=== PATIENT | male | born 1970 | race African-American/Black ===

== ENCOUNTER → 2017-05-09 08:19 | Outpatient (CLI) | payer BC, SELFPAY | PROVIDERS: Family Provider Family Medicine; PCP Family Medicine; Visit Provider Internal Medicine Endocrinology, Diabetes & Metabolism | DX: R79.89 Other specified abnormal findings of blood chemistry (principal) | CPT/HCPCS: 36415; 84402; 84403 ==

== ENCOUNTER → 2017-10-22 08:48 | Outpatient (CLI) | payer BC, SELFPAY ==
[2017-10-22 10:44] LABS: Cholesterol 91 mg/dL (200); High Density Lipoprotein 34 mg/dL; Triglycerides 214 mg/dL; Very Low Density Lipoprotein 43 mg/dL (5-40)
== END ==
PROVIDERS: Family Provider Family Medicine; PCP Family Medicine; Visit Provider Internal Medicine Endocrinology, Diabetes & Metabolism
DX: R79.89 Other specified abnormal findings of blood chemistry (principal)
CPT/HCPCS: 36415; 80061; 84403

== ENCOUNTER → 2018-03-04 13:16 | Outpatient (CLI) | payer BC, SELFPAY ==
--- NOTE | 2018-03-04 13:21 | MRI_ITS ---
STUDY: MRI BRAIN WITH AND WITHOUT CONTRAST REASON FOR EXAM: Male, 47 years old. Hypogonadotropic hypogonadism. TECHNIQUE: Standardized multiplanar fat and water weighted pulse sequences were obtained. 10 ml of Gadavist contrast material was administered intravenously for the contrast portion of the examination. COMPARISON: None. FINDINGS: Normal size of the ventricles and extra-axial spaces for the patient's age. Normal white matter tracts of the supratentorial brain. Normal bilateral basal ganglia. Normal thalami. There is no extra-axial fluid accumulation. Normal flow voids within the major intracranial circulation suggesting patency by spin echo criteria. Normal venous enhancement. There is no enhancing intra-axial or extra-axial abnormality. There is a 7 x 7 x 6 mm lesion in the right posterior aspect of the pituitary gland with decreased enhancement relative to the pituitary gland. This is consistent with pituitary microadenoma. The sella turcica is otherwise unremarkable. The infundibular stalk, optic chiasm and hypothalamus are unremarkable. Cavernous sinuses and cavernous carotid arteries are unremarkable. Normal tectal plate and pineal gland. Normal midbrain, antoinette and medulla. Normal cerebellum. Normal basal cisterns. Normal bilateral temporal bones. Normal bilateral internal auditory canals. No demonstrated orbital abnormality, within the constraints of a routine brain study. There is mild mucosal thickening in the maxillary, ethmoid, and frontal sinuses. Normal calvarium and skull base. Normal visualized soft tissue structures. MRI/Brain W/WO Contrast IMPRESSION: 1. A 7 x 7 mm hypoenhancing pituitary lesion consistent with microadenoma. 2. Mild chronic sinusitis. Electronically Signed: Melissa Hernández MD at 16:14 EST Tel , Service support ,
== END ==
PROVIDERS: Family Provider Family Medicine; PCP Family Medicine; Referring Provider Internal Medicine Endocrinology, Diabetes & Metabolism; Visit Provider Internal Medicine Endocrinology, Diabetes & Metabolism
DX: E23.0 Hypopituitarism (principal)
CPT/HCPCS: 70553; A9585

== ENCOUNTER 2018-09-24 13:00 | Outpatient (RCR) | payer BC, SELFPAY ==
[2018-05-07 15:36] VITALS: BMI 32.3
== END 2018-10-09 23:59 ==
LOC: DC 13:00
PROVIDERS: Family Provider Family Medicine; PCP Family Medicine; Visit Provider Podiatrist
DX: E11.9 Type 2 diabetes mellitus without complications (principal); E66.9 Obesity, unspecified; Z68.32 Body mass index [BMI] 32.0-32.9, adult; Z71.3 Dietary counseling and surveillance
CPT/HCPCS: 97802; G0108

== ENCOUNTER → 2018-11-02 | Outpatient (CLI) | payer BC, SELFPAY ==
[2018-05-07 15:36] VITALS: BMI 32.3
[2018-11-02 12:50] LABS: Hemoglobin A1c 7.5 % (4.2-6.3)
[2018-11-02 13:45] LABS: ALB/GLOB Ratio 1.2 RATIO (0.9-2.4); AST(SGOT) 20 U/L (15-37); Alanine Aminotransfer ALT/SGPT 31 U/L (16-61); Albumin, Serum 4.2 g/dL (3.2-5.0); Alkaline Phosphatase 67 U/L (45-117); Anion Gap 7 (5-15); BUN 24 mg/dL (7-18); BUN/Creat Ratio 16.2 RATIO (10-20); Calcium,Total 9.1 mg/dL (8.5-10.1); Chloride 105 mmol/L (98-107); Cholesterol 93 mg/dL (200); Creatinine, Serum 1.48 mg/dL (0.70-1.30); EST Glomerular Filtration Rate 54 mL/min (>60); Est Glom Filt Rate - Afr Amer 65 mL/min (>60); Globulin 3.6 g/dL (2.2-4.2); Glucose 155 mg/dL (74-106); High Density Lipoprotein 34 mg/dL; PSA,Total - Annual Screen 1.03 ng/mL (0.00-4.00); Potassium 3.8 mmol/L (3.5-5.1); Prolactin 19.3 ng/mL; Protein, Total 7.8 g/dL (6.4-8.2); Sodium Level 139 mmol/L (136-145); Triglycerides 240 mg/dL; Very Low Density Lipoprotein 48 mg/dL (5-40)
== END | disposition home or self-care (01) ==
LOC: LAB 11:29
PROVIDERS: Family Provider Family Medicine; PCP Family Medicine; Referring Provider Internal Medicine Endocrinology, Diabetes & Metabolism; Visit Provider Internal Medicine Endocrinology, Diabetes & Metabolism
DX: D35.2 Benign neoplasm of pituitary gland (principal); E23.0 Hypopituitarism; E11.65 Type 2 diabetes mellitus with hyperglycemia; Z12.5 Encounter for screening for malignant neoplasm of prostate
CPT/HCPCS: 36415; 80053; 80061; 83036; 84146; 84153; 84403; G0103

== ENCOUNTER 2018-11-04 16:02 | Outpatient (RCR) | payer BC, SELFPAY ==
[2018-05-07 15:36] VITALS: BMI 32.3
== END 2018-11-09 23:59 ==
LOC: DC 16:02
PROVIDERS: Family Provider Family Medicine; PCP Family Medicine; Visit Provider Podiatrist
DX: E11.9 Type 2 diabetes mellitus without complications (principal); E66.9 Obesity, unspecified; Z68.32 Body mass index [BMI] 32.0-32.9, adult; Z71.3 Dietary counseling and surveillance
CPT/HCPCS: 97803

== ENCOUNTER 2018-11-27 13:01 | Outpatient (RCR) | payer BC, SELFPAY ==
[2018-05-07 15:36] VITALS: BMI 32.3
== END 2018-11-27 23:59 | disposition home or self-care (01) ==
LOC: DC 13:01
PROVIDERS: Family Provider Family Medicine; PCP Family Medicine; Visit Provider Podiatrist
DX: Z71.3 Dietary counseling and surveillance (principal); E11.9 Type 2 diabetes mellitus without complications; E66.9 Obesity, unspecified; Z68.32 Body mass index [BMI] 32.0-32.9, adult
CPT/HCPCS: G0108

== ENCOUNTER → 2019-01-06 | Outpatient (CLI) | payer BC, SELFPAY ==
[2018-12-03 12:54] VITALS: BMI 31.6
--- NOTE | 2019-01-06 12:56 | ECHOD_ITS ---
Reason For Study: HTN Procedure This was a 2D Doppler, Color Flow transthoracic echocardiogram. Exam performed in department. Left Ventricle Normal LV size. Left ventricular systolic function is normal. The estimated ejection fraction is 60 %. Stage 2 diastolic dysfunction. No regional wall motion abnormalities noted. Right Ventricle Normal RV size. Normal systolic function. Atria Normal left atrium. Normal right atrium. Mitral Valve Normal mitral valve. Tricuspid Valve Normal tricuspid valve. Aortic Valve The aortic valve is not well visualized. Pulmonic Valve The pulmonic valve is not well visualized. Great Vessels Normal aortic root. The pulmonary artery is normal size. Normal inferior vena cava. Pericardium/Pleural No pericardial effusion. MMode/2D Measurements & Calculations LVIDd: 4.9 cm IVSd: 1.0 cm Ao root diam: 3.2 cm LVIDs: 3.0 cm LVPWd: 1.1 cm RVDd: 3.1 cm FS: 38.6 % LAV(MOD-bp): 51.0 ml LA A4 area: 14.7 cm2 LA dimension(2D): 3.4 cm LAV(MOD-bp) Indexed: 24.1 ml/m2 LAV(MOD-sp2): 49.6 ml LAV(MOD-sp4): 49.6 ml RA A4 area: 17.5 cm2 Time Measurements MV dec time: 0.22 sec Doppler Measurements & Calculations MV E max smooth: 80.6 cm/sec Lat Peak E' Smooth: 9.5 cm/sec Med Peak E' Smooth: 8.7 cm/sec MV A max smooth: 62.5 cm/sec E/E' lat: 8.5 E/E' med: 9.3 MV E/A: 1.3 Ao V2 max: 119.6 cm/sec LV V1 max: 103.7 cm/sec PA V2 max: 147.4 cm/sec Ao max P.7 mmHg LV V1 max P.3 mmHg PA V2 mean: 96.1 cm/sec PA V2 VTI: 22.9 cm PI dec slope: 300.5 cm/sec2 Interpretation Summary Normal LV size. Left ventricular systolic function is normal. The estimated ejection fraction is 60 %. Stage 2 diastolic dysfunction. Ordering Physician: Julio Fritz Referring Physician: Rolando Holliday Performed By: Maral Noel, PAIGE, RVT
== END | disposition home or self-care (01) ==
LOC: CVS 12:55
PROVIDERS: Family Provider Family Medicine; PCP Family Medicine; Referring Provider Internal Medicine Cardiovascular Disease; Visit Provider Internal Medicine Cardiovascular Disease
DX: I10 Essential (primary) hypertension (principal)
CPT/HCPCS: 93306

== ENCOUNTER → 2019-12-08 | Outpatient (CLI) | payer BC, SELFPAY ==
[2019-12-02 14:08] VITALS: BMI 30.9
[2019-12-08 15:42] LABS: Vitamin D,25 Hydroxy 49.4 ng/mL
[2019-12-08 15:45] LABS: Hemoglobin A1c 7.5 % (3.8-5.6)
[2019-12-08 15:49] LABS: AST(SGOT) 15 U/L (15-37); Alanine Aminotransfer ALT/SGPT 33 U/L (16-61); Albumin, Serum 4.2 g/dL (3.2-5.0); Alkaline Phosphatase 72 U/L (45-117); Anion Gap 7 (5-15); BUN 18 mg/dL (7-18); Calcium,Total 9.6 mg/dL (8.5-10.1); Chloride 106 mmol/L (98-107); Cholesterol 95 mg/dL (200); EST Glomerular Filtration Rate 68 mL/min (>60); Est Glom Filt Rate - Afr Amer 82 mL/min (>60); Glucose 105 mg/dL (74-106); High Density Lipoprotein 37 mg/dL; Potassium 3.2 mmol/L (3.5-5.1); Protein, Total 8.2 g/dL (6.4-8.2); Sodium Level 138 mmol/L (136-145); Thyroid Stim Hormone (TSH) 2.01 uIU/mL (0.358-3.74); Triglycerides 165 mg/dL; Very Low Density Lipoprotein 33 mg/dL (5-40)
[2019-12-08 15:57] LABS: Microalbumin,Random Urine 44.3 mg/L (NO RANGE EST.)
== END | disposition home or self-care (01) ==
PROVIDERS: PCP Family Medicine; Referring Provider Internal Medicine Endocrinology, Diabetes & Metabolism; Visit Provider Internal Medicine Endocrinology, Diabetes & Metabolism
DX: E11.65 Type 2 diabetes mellitus with hyperglycemia (principal); I10 Essential (primary) hypertension; D35.2 Benign neoplasm of pituitary gland; E55.9 Vitamin D deficiency, unspecified; E23.0 Hypopituitarism
CPT/HCPCS: 36415; 80053; 80061; 82043; 82306; 83036; 84443

== ENCOUNTER → 2020-04-06 08:57 | Outpatient (CLI) | payer BC, SELFPAY ==
[2019-12-02 14:08] VITALS: BMI 30.9
[2020-04-06 10:51] LABS: ALB/GLOB Ratio 1.1 RATIO (0.9-2.4); AST(SGOT) 13 U/L (15-37); Alanine Aminotransfer ALT/SGPT 22 U/L (16-61); Albumin, Serum 4.2 g/dL (3.2-5.0); Alkaline Phosphatase 71 U/L (45-117); Anion Gap 7 (5-15); BUN 23 mg/dL (7-18); BUN/Creat Ratio 16.3 RATIO (10-20); Calcium,Total 9.6 mg/dL (8.5-10.1); Chloride 104 mmol/L (98-107); Creatinine, Serum 1.41 mg/dL (0.70-1.30); EST Glomerular Filtration Rate 56 mL/min (>60); Est Glom Filt Rate - Afr Amer 68 mL/min (>60); Globulin 3.9 g/dL (2.2-4.2); Glucose 124 mg/dL (74-106); Potassium 3.7 mmol/L (3.5-5.1); Protein, Total 8.1 g/dL (6.4-8.2); Sodium Level 137 mmol/L (136-145)
[2020-04-06 10:56] LABS: Hemoglobin A1c 7.5 % (3.8-5.6)
== END ==
PROVIDERS: PCP Family Medicine; Referring Provider Internal Medicine Endocrinology, Diabetes & Metabolism; Visit Provider Internal Medicine Endocrinology, Diabetes & Metabolism
DX: E11.65 Type 2 diabetes mellitus with hyperglycemia (principal); G47.33 Obstructive sleep apnea (adult) (pediatric); I10 Essential (primary) hypertension; E78.5 Hyperlipidemia, unspecified
CPT/HCPCS: 36415; 80053; 83036

== ENCOUNTER → 2020-08-02 11:48 | Outpatient (CLI) | payer BC, SELFPAY ==
[2019-12-02 14:08] VITALS: BMI 30.9
[2020-08-02 15:49] LABS: AST(SGOT) 16 U/L (15-37); Alanine Aminotransfer ALT/SGPT 29 U/L (16-61); Alkaline Phosphatase 76 U/L (45-117); Anion Gap 9 (5-15); BUN 21 mg/dL (7-18); BUN/Creat Ratio 16.3 RATIO (10-20); Calcium,Total 9.4 mg/dL (8.5-10.1); Chloride 103 mmol/L (98-107); Cholesterol 109 mg/dL (200); Creatinine, Serum 1.29 mg/dL (0.70-1.30); EST Glomerular Filtration Rate 62 mL/min (>60); Est Glom Filt Rate - Afr Amer 76 mL/min (>60); Globulin 4.1 g/dL (2.2-4.2); Glucose 117 mg/dL (74-106); High Density Lipoprotein 46 mg/dL; PSA,Total - Annual Screen 1.38 ng/mL (0.00-4.00); Potassium 3.6 mmol/L (3.5-5.1); Protein, Total 8.1 g/dL (6.4-8.2); Sodium Level 137 mmol/L (136-145); Triglycerides 107 mg/dL; Very Low Density Lipoprotein 21 mg/dL (5-40)
[2020-08-02 16:53] LABS: Hemoglobin A1c 6.8 % (3.8-5.6)
[2020-08-05 12:48] LABS: Vitamin D,25 Hydroxy 37.7 ng/mL
== END ==
PROVIDERS: PCP Family Medicine; Referring Provider Internal Medicine Endocrinology, Diabetes & Metabolism; Visit Provider Internal Medicine Endocrinology, Diabetes & Metabolism
DX: G47.33 Obstructive sleep apnea (adult) (pediatric) (principal); I10 Essential (primary) hypertension; E23.0 Hypopituitarism; E11.9 Type 2 diabetes mellitus without complications
CPT/HCPCS: 36415; 80053; 80061; 82306; 83036; 84153; 84403; G0103

== ENCOUNTER 2021-05-02 10:42 | Outpatient (CLI) | payer BC, SELFPAY ==
[2021-05-02 11:55] LABS: Hematocrit 40.5 % (40-54); Hemoglobin 13.5 g/dL (13.0-16.5); Mean Corp Hgb Conc 33.3 g/dL (32-36); Mean Corpuscular Volume 86.9 fL (80-94); Platelet Count 272 K/mm3 (150-450); RBC Distribution Width CV 12.9 % (11.6-14.6); RBC Distribution Width SD 40.6 fl (35.1-43.9); Red Blood Count 4.66 M/mm3 (4.6-6.2)
[2021-05-02 12:48] LABS: Vitamin D,25 Hydroxy 22.3 ng/mL
[2021-05-02 12:56] LABS: ALB/GLOB Ratio 0.9 RATIO (0.9-2.4); AST(SGOT) 14 U/L (15-37); Alanine Aminotransfer ALT/SGPT 29 U/L (16-61); Albumin, Serum 4.1 g/dL (3.2-5.0); Alkaline Phosphatase 83 U/L (45-117); BUN 26 mg/dL (7-18); BUN/Creat Ratio 17.7 RATIO (10-20); Calcium,Total 9.6 mg/dL (8.5-10.1); Chloride 100 mmol/L (98-107); Cholesterol 115 mg/dL (200); Creatinine, Serum 1.47 mg/dL (0.70-1.30); EST Glomerular Filtration Rate 54 mL/min (>60); Est Glom Filt Rate - Afr Amer 65 mL/min (>60); Globulin 4.5 g/dL (2.2-4.2); Glucose 202 mg/dL (74-106); Potassium 3.6 mmol/L (3.5-5.1); Protein, Total 8.6 g/dL (6.4-8.2); Sodium Level 135 mmol/L (136-145); Triglycerides 388 mg/dL
[2021-05-02 12:57] LABS: Anion Gap 10 (5-15); High Density Lipoprotein 34 mg/dL; Thyroid Stim Hormone (TSH) 1.63 uIU/mL (0.358-3.74); Very Low Density Lipoprotein 78 mg/dL (5-40)
[2021-05-02 13:00] LABS: Hemoglobin A1c 10.3 % (3.8-5.6)
== END 2021-05-02 23:59 | disposition home or self-care (01) ==
LOC: MTLAB 10:46
PROVIDERS: PCP Family Medicine; Referring Provider Internal Medicine Endocrinology, Diabetes & Metabolism; Visit Provider Internal Medicine Endocrinology, Diabetes & Metabolism
DX: E11.65 Type 2 diabetes mellitus with hyperglycemia (principal); E23.0 Hypopituitarism; I10 Essential (primary) hypertension; E78.5 Hyperlipidemia, unspecified; E55.9 Vitamin D deficiency, unspecified
CPT/HCPCS: 36415; 80053; 80061; 82306; 83036; 84403; 84443; 85027

== ENCOUNTER → 2021-12-12 | Outpatient (CLI) | payer BC, SELFPAY ==
[2021-12-12 12:54] LABS: Vitamin D,25 Hydroxy 17.9 ng/mL
[2021-12-12 12:59] LABS: ALB/GLOB Ratio 0.9 RATIO (0.9-2.4); AST(SGOT) 13 U/L (15-37); Alanine Aminotransfer ALT/SGPT 25 U/L (16-61); Alkaline Phosphatase 81 U/L (45-117); Anion Gap 8 (5-15); BUN 22 mg/dL (7-18); BUN/Creat Ratio 14.8 RATIO (10-20); Calcium,Total 9.2 mg/dL (8.5-10.1); Chloride 106 mmol/L (98-107); Cholesterol 122 mg/dL (200); Creatinine, Serum 1.49 mg/dL (0.70-1.30); EST Glomerular Filtration Rate 53 mL/min (>60); Est Glom Filt Rate - Afr Amer 64 mL/min (>60); Globulin 4.3 g/dL (2.2-4.2); Glucose 227 mg/dL (74-106); High Density Lipoprotein 44 mg/dL; Microalbumin,Random Urine 12.4 mg/L (NO RANGE EST.); Microalbumin:Creatinine Ratio 22.7 mg/g CRE (<30 mg/g CRE); Potassium 3.7 mmol/L (3.5-5.1); Protein, Total 8.3 g/dL (6.4-8.2); Sodium Level 140 mmol/L (136-145); Triglycerides 287 mg/dL; Very Low Density Lipoprotein 57 mg/dL (5-40)
== END | disposition home or self-care (01) ==
PROVIDERS: PCP Family Medicine; Visit Provider Internal Medicine Endocrinology, Diabetes & Metabolism
DX: E11.65 Type 2 diabetes mellitus with hyperglycemia (principal); E23.0 Hypopituitarism; E55.9 Vitamin D deficiency, unspecified; I10 Essential (primary) hypertension; E66.9 Obesity, unspecified
CPT/HCPCS: 36415; 80053; 80061; 82043; 82306; 82570; 84443

== ENCOUNTER → 2023-01-10 | Outpatient (CLI) | payer BC, SELFPAY ==
[2023-01-10 12:53] LABS: Microalbumin:Creatinine Ratio 31.2 mg/g CRE (<30 mg/g CRE)
[2023-01-10 12:55] LABS: Vitamin D,25 Hydroxy 24.6 ng/mL
[2023-01-10 13:03] LABS: AST(SGOT) 16 U/L (15-37); Alanine Aminotransfer ALT/SGPT 43 U/L (16-61); Alkaline Phosphatase 82 U/L (45-117); Anion Gap 7 (5-15); BUN 20 mg/dL (7-18); BUN/Creat Ratio 15.6 RATIO (10-20); Chloride 108 mmol/L (98-107); Cholesterol 121 mg/dL (200); Creatinine, Serum 1.28 mg/dL (0.70-1.30); EST Glomerular Filtration Rate 62 mL/min (>60); Est Glom Filt Rate - Afr Amer 76 mL/min (>60); Globulin 4.2 g/dL (2.2-4.2); Glucose 128 mg/dL (74-106); High Density Lipoprotein 41 mg/dL; Potassium 3.8 mmol/L (3.5-5.1); Protein, Total 8.2 g/dL (6.4-8.2); Sodium Level 143 mmol/L (136-145); Triglycerides 289 mg/dL; Very Low Density Lipoprotein 58 mg/dL (5-40)
== END | disposition home or self-care (01) ==
PROVIDERS: PCP Family Medicine; Referring Provider Internal Medicine Endocrinology, Diabetes & Metabolism; Visit Provider Internal Medicine Endocrinology, Diabetes & Metabolism
DX: E11.65 Type 2 diabetes mellitus with hyperglycemia (principal); I10 Essential (primary) hypertension; E78.5 Hyperlipidemia, unspecified; E66.9 Obesity, unspecified; E55.9 Vitamin D deficiency, unspecified
CPT/HCPCS: 36415; 80053; 80061; 82043; 82306; 82570; 84443

== ENCOUNTER → 2023-11-30 | Outpatient (CLI) | payer BC, SELFPAY ==
[2023-11-30 15:42] LABS: Hemoglobin A1c 6.3 % (3.8-5.6)
[2023-11-30 15:47] LABS: AST(SGOT) 18 U/L (15-37); Alanine Aminotransfer ALT/SGPT 35 U/L (16-61); Alkaline Phosphatase 72 U/L (45-117); Anion Gap 8 (5-15); BUN 13 mg/dL (7-18); BUN/Creat Ratio 10.6 RATIO (10-20); Calcium,Total 9.5 mg/dL (8.5-10.1); Chloride 104 mmol/L (98-107); Cholesterol 89 mg/dL (200); Creatinine, Serum 1.23 mg/dL (0.70-1.30); EST Glomerular Filtration Rate 65 mL/min (>60); Est Glom Filt Rate - Afr Amer 79 mL/min (>60); Globulin 4.1 g/dL (2.2-4.2); Glucose 137 mg/dL (74-106); High Density Lipoprotein 38 mg/dL; Potassium 3.6 mmol/L (3.5-5.1); Protein, Total 8.1 g/dL (6.4-8.2); Sodium Level 136 mmol/L (136-145); Triglycerides 189 mg/dL; Very Low Density Lipoprotein 38 mg/dL (5-40)
[2023-11-30 15:59] LABS: Microalbumin,Random Urine 51.2 mg/L (NO RANGE EST.); Microalbumin:Creatinine Ratio 27.4 mg/g CRE (<30 mg/g CRE)
== END | disposition home or self-care (01) ==
PROVIDERS: PCP Nurse Practitioner Family; Referring Provider Internal Medicine Endocrinology, Diabetes & Metabolism; Visit Provider Internal Medicine Endocrinology, Diabetes & Metabolism
DX: E11.65 Type 2 diabetes mellitus with hyperglycemia (principal); I10 Essential (primary) hypertension; E78.5 Hyperlipidemia, unspecified; E66.9 Obesity, unspecified; E55.9 Vitamin D deficiency, unspecified
CPT/HCPCS: 36415; 80053; 80061; 82043; 82570; 83036; 84439; 84443

== ENCOUNTER → 2024-06-12 | Outpatient (CLI) | payer BC, SELFPAY ==
[2024-06-12 12:06] LABS: ALB/GLOB Ratio 1.4 RATIO (0.9-2.4); AST(SGOT) 20 U/L (<=37); Alanine Aminotransfer ALT/SGPT 34 U/L (<=46); Albumin, Serum 4.7 g/dL (3.5-5.0); Alkaline Phosphatase 81 U/L (40-129); Anion Gap 15 (5-15); BUN 24 mg/dL (4-19); BUN/Creat Ratio 18.1 RATIO (10-20); CPK Total, Creatine Kinase 83 U/L (24-195); Calcium,Total 9.9 mg/dL (7.6-11.0); Carbon Dioxide 21.1 mmol/L (21.0-32.0); Chloride 102 mmol/L (98-108); Cholesterol 105 mg/dL (<=200); Creatinine, Serum 1.33 mg/dL (0.70-1.20); EST Glomerular Filtration Rate 64 (>60); Globulin 3.3 g/dL (2.2-4.2); Glucose 147 mg/dL (70-99); High Density Lipoprotein 32 mg/dL; Low Density Lipoprotein Calc. -2 mg/dL; Potassium 3.9 mmol/L (3.3-5.1); Sodium Level 138 mmol/L (133-145); Total Bilirubin 0.75 mg/dL (0.00-1.30); Triglycerides 374 mg/dL; Very Low Density Lipoprotein 75 mg/dL (5-40); cholesterol:hdl ratio screen 3.29
[2024-06-12 15:08] LABS: Microalbumin,Random Urine < 12.0 mg/L (NO RANGE EST.); Microalbumin:Creatinine Ratio UNABLE TO CALCULATE mg/g CRE
== END | disposition home or self-care (01) ==
LOC: MTLAB 09:05
PROVIDERS: PCP Nurse Practitioner Family; Referring Provider Internal Medicine Endocrinology, Diabetes & Metabolism; Visit Provider Internal Medicine Endocrinology, Diabetes & Metabolism
DX: E11.65 Type 2 diabetes mellitus with hyperglycemia (principal); I10 Essential (primary) hypertension; E78.5 Hyperlipidemia, unspecified; E66.9 Obesity, unspecified; E55.9 Vitamin D deficiency, unspecified
CPT/HCPCS: 36415; 80053; 80061; 82043; 82306; 82550; 82570; 83036

== ENCOUNTER 2024-10-30 05:29 | Day surgery (SDC) | payer BC, SELFPAY ==
--- NOTE | 2024-10-17 08:01 | EKG12_ITS ---
Test Reason : PREOP Blood Pressure : */* mmHG Vent. Rate : 81 BPM Atrial Rate : 81 BPM P-R Int : 174 ms QRS Dur : 82 ms QT Int : 380 ms P-R-T Axes : 34 16 29 degrees QTcB Int : 441 ms Normal sinus rhythm Nonspecific T wave abnormality Abnormal ECG Confirmed by SHERRIE TENORIO ([id number]), video news editor MORALES ZAZUETA ([id number]) on 10/20/2024 6:43:40 AM Referred By: Chester Cowart Confirmed By: SHERRIE TENORIO
[2024-10-17 09:05] LABS: Hematocrit 42.1 % (40-54); Hemoglobin 13.7 g/dL (13.0-16.5); Immature Granulocytes Count 0.060 X10^3/uL (0.0-0.0); Mean Corp Hgb Conc 32.5 g/dL (32-36); Mean Corpuscular Volume 85.6 fL (80-94); Mean Platelet Vol. 9.5 fl (6.2-12.0); NRBC Flagged by Analyzer 0 % (0-5); Platelet Count 288 K/mm3 (150-450); RBC Distribution Width CV 13.4 % (11.6-14.6); RBC Distribution Width SD 41.9 fl (35.1-43.9); Red Blood Count 4.92 M/mm3 (4.6-6.2); White Blood Count 6.4 K/mm3 (4.4-11.0)
[2024-10-17 10:26] LABS: Anion Gap 14 (5-15); BUN 21 mg/dL (4-19); BUN/Creat Ratio 14.5 RATIO (10-20); Calcium,Total 10.0 mg/dL (7.6-11.0); Carbon Dioxide 22.6 mmol/L (21.0-32.0); Chloride 102 mmol/L (98-108); Glucose 145 mg/dL (70-99); Potassium 3.9 mmol/L (3.3-5.1)
--- NOTE | 2024-10-20 17:53 | PAT.ANESEVAL ---
Pre-Assessment Diagnosis/Proposed Procedure Planned Operative Procedure(s): (R) RIGHT SHOULDER ARTHROSCOPIC ROTATOR CUFF REPAIR, SUBACROMIAL DECOMPRESSION, MINI OPEN BICEPS TENODESIS AND CAPSULAR RELEASE Anesthesia History Anesthesia History - client application support engineer: Anesthesia History - client application support engineer Hx Hospitalization No 10/17/24 13:31 Any Problems With Anesthesia No 10/17/24 13:31 Cholinesterase deficiency No 10/17/24 13:31 You/Your Family Experience No 10/17/24 13:31 fever (hyperthermia) with Relationship Recent Exposure to Contagious Disease Does patient have nerve No 10/17/24 13:31 stimulator Patient instructed to have device shut off --Does patient have Pacemaker or ICD? When Was Last Pacemaker Check QUESTION #4 FULL TEXT: You/Your Family Experience fever (hyperthermia) with Anesthesia Last Oral Intake Last Oral intake: Last Oral Intake NPO since Meds taken in AM with sips of water? Meds patient instructed to take am of surgery PONV PONV - client application support engineer: PONV - client application support engineer Female No 10/17/24 13:31 HX of Motion Sickness No 10/17/24 13:31 HX of N/V After Surgery No 10/17/24 13:31 Non-Smoker Yes 10/17/24 13:31 Duration of Surgery greater Yes 10/17/24 13:31 than 60 minutes Number of Risk Factors 2 10/17/24 13:31 PONV Score Moderate Risk 10/17/24 13:31 Height & Weight Height & Weight: Anesthesia: Height & Weight Height 5 ft 9 in 02/29/24 13:26 Respiratory Assessment Respiratory Assessment - client application support engineer: Respiratory Tract Infection Hx - client application support engineer Hx Respiratory Tract Infection No 10/17/24 13:31 STOP Sleep Apnea STOP Sleep Apnea - client application support engineer: STOP Sleep Apnea - client application support engineer Hx Hypertension Yes 10/17/24 13:31 Hx Sleep Apnea Yes 10/17/24 13:31 CPAP Yes: NON COMPLIANT 10/17/24 13:31 BIPAP No 10/17/24 13:31 Do you snore loudly (louder than talking or can be heard Do you often feel tired/ fatigued/ sleepy during daytime? Has anyone observed you stop breathing during sleep? STOP Results Positive 10/17/24 13:31 QUESTION #5 FULL TEXT : Do you snore loudly (louder than talking or can be heard through closed doors)? 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 Specify any problems Hx of Preganancy in last 3 N/A 10/17/24 13:31 Months Nurse Filling Out Transfusion EHMAN 10/17/24 13:31 & Questions: Date: 10/17/24 10/17/24 13:31 Time: 13:38 10/17/24 13:31 Patient unable to answer at this time (ie. confused, unrespo /Reproduction History /Reproductive History - client application support engineer: /Reproductive Hx- client application support engineer Hx Now Gestational Age (in weeks): EDC: Hx Hx Para Hx Section SAB [facility] Medical History (Updated 10/17/24 @ 13:37 by Sarika Jordan) Wears glasses Insulin dependent diabetes mellitus Diabetes High cholesterol History of diverticulitis Non-smoker CPAP (continuous positive airway pressure) dependence Sleep apnea Hypertension History of echocardiogram Cardiology follow-up encounter Abnormal electrocardiogram Obesity Type 2 diabetes mellitus Essential (primary) hypertension Hyperlipidemia Home Medications ?Medication ?Instructions ?Recorded ?Last Taken ?Type amlodipine 10 mg tablet 10 mg PO QDAY 03/30/17 Unknown History hydrochlorothiazide 25 mg tablet 25 mg PO QDAY 03/30/17 Unknown History metformin 1,000 mg tablet 1,000 mg PO BID 03/30/17 Unknown History BP Cuff and monitor #1 ea 12/02/19 Unknown Rx dapagliflozin propanediol 10 mg 10 mg PO DAILY 01/03/22 Unknown History tablet (Farxiga) candesartan 32 mg tablet 32 mg PO DAILY 12/12/22 Unknown History insulin degludec 100 unit/mL (3 18 unit subcut DAILY 12/12/22 Unknown History mL) subcutaneous pen (Tresiba FlexTouch U-100 insulin) meloxicam 7.5 mg tablet 7.5 mg PO DAILY 12/12/22 Unknown History insulin aspart 12 unit subcut TID 02/29/24 Unknown History (niacinamide)(U-100) 100 unit/mL(3 mL) subcutaneous pen (Fiasp FlexTouch U-100 Insulin) tirzepatide 12.5 mg/0.5 mL 12.5 mg subcut TATUM 02/29/24 Unknown History subcutaneous pen injector (Mounjaro) rosuvastatin 20 mg tablet 20 mg PO DAILY 10/17/24 Unknown History Allergy/AdvReac Type Severity Reaction Status Date / Time naproxen (From Naprosyn) AdvReac Severe COULD NOT Verified 10/17/24 13:23 TASTE ANYTHING Family History Mother Diabetes Surgical History (Updated 10/17/24 @ 13:37 by Sarika Jordan) History of cardiac catheterization History of left heart catheterization (2010) Social History Smoking Status: Never smoker alcohol intake: current what type of physical activity do you participate in: none Audit: Pertinent Findings Pertinent Findings EKG Perinent findings: 10/17/2024. Normal sinus rhythm. Nonspecific T wave abnormality. Echo (EF%) pertinent findings: 01/06/2019. EF 60%. No aortic stenosis noted. Consult pertinent findings: February 29, 2024. Dr. Fritz. 1. [id number] at this time. Continue current therapy of amlodipine, candesartan, hydrochlorothiazide. 2. Hyperlipidemia-check stress echo. Recommendation Anesthesia Recommendation Anesthesia recommendation: F/U recommended (Cardiology visit from February 2024 recommended a stress echo. Was this ever done? And can we get the results.)
--- NOTE | 2024-10-23 15:29 | PAT.ANE_ITS ---
Pre-Assessment Diagnosis/Proposed Procedure Planned Operative Procedure(s): (R) RIGHT SHOULDER ARTHROSCOPIC ROTATOR CUFF REPAIR, SUBACROMIAL DECOMPRESSION, MINI OPEN BICEPS TENODESIS AND CAPSULAR RELEASE Anesthesia History Anesthesia History - geology associate: Anesthesia History - geology associate Hx Hospitalization No 10/17/24 13:31 Any Problems With Anesthesia No 10/17/24 13:31 Cholinesterase deficiency No 10/17/24 13:31 You/Your Family Experience No 10/17/24 13:31 fever (hyperthermia) with Relationship Recent Exposure to Contagious Disease Does patient have nerve No 10/17/24 13:31 stimulator Patient instructed to have device shut off --Does patient have Pacemaker or ICD? When Was Last Pacemaker Check QUESTION #4 FULL TEXT: You/Your Family Experience fever (hyperthermia) with Anesthesia Last Oral Intake Last Oral intake: Last Oral Intake NPO since Meds taken in AM with sips of water? Meds patient instructed to take am of surgery PONV PONV - geology associate: PONV - geology associate Female No 10/17/24 13:31 HX of Motion Sickness No 10/17/24 13:31 HX of N/V After Surgery No 10/17/24 13:31 Non-Smoker Yes 10/17/24 13:31 Duration of Surgery greater Yes 10/17/24 13:31 than 60 minutes Number of Risk Factors 2 10/17/24 13:31 PONV Score Moderate Risk 10/17/24 13:31 Height & Weight Height & Weight: Anesthesia: Height & Weight Height 5 ft 9 in 02/29/24 13:26 Respiratory Assessment Respiratory Assessment - geology associate: Respiratory Tract Infection Hx - geology associate Hx Respiratory Tract Infection No 10/17/24 13:31 STOP Sleep Apnea STOP Sleep Apnea - geology associate: STOP Sleep Apnea - geology associate Hx Hypertension Yes 10/17/24 13:31 Hx Sleep Apnea Yes 10/17/24 13:31 CPAP Yes: NON COMPLIANT 10/17/24 13:31 BIPAP No 10/17/24 13:31 Do you snore loudly (louder than talking or can be heard Do you often feel tired/ fatigued/ sleepy during daytime? Has anyone observed you stop breathing during sleep? STOP Results Positive 10/17/24 13:31 QUESTION #5 FULL TEXT : Do you snore loudly (louder than talking or can be heard through closed doors)? 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 Specify any problems Hx of Preganancy in last 3 N/A 10/17/24 13:31 Months Nurse Filling Out Transfusion [facility]LE[facility]MAN 10/17/24 13:31 & Questions: Date: 10/17/24 10/17/24 13:31 Time: 13:38 10/17/24 13:31 Patient unable to answer at this time (ie. confused, unrespo /Reproduction History /Reproductive History - geology associate: /Reproductive Hx- geology associate Hx Now Gestational Age (in weeks): EDC: Hx Hx Para Hx Section SAB [facility] Medical History (Updated 10/17/24 @ 13:37 by Sarika Jordan) Wears glasses Insulin dependent diabetes mellitus Diabetes High cholesterol History of diverticulitis Non-smoker CPAP (continuous positive airway pressure) dependence Sleep apnea Hypertension History of echocardiogram Cardiology follow-up encounter Abnormal electrocardiogram Obesity Type 2 diabetes mellitus Essential (primary) hypertension Hyperlipidemia Home Medications ?Medication ?Instructions ?Recorded ?Last Taken ?Type amlodipine 10 mg tablet 10 mg PO QDAY 03/30/17 Unkno wn History hydrochlorothiazide 25 mg tablet 25 mg PO QDAY 8 Unknown History metformin 1,000 mg tablet 1,000 mg PO BID 03/30/17 Unk nown History BP Cuff and monitor #1 ea 12/02/19 Unknown Rx dapagliflozin propanediol 10 mg 10 mg PO DAILY 2 Unknown History tablet (Farxiga) candesartan 32 mg tablet 32 mg PO DAILY 12/12/22 Unkn own History insulin degludec 100 unit/mL (3 18 unit subcut DAILY 1 Unknown History mL) subcutaneous pen (Tresiba FlexTouch U-100 insulin) meloxicam 7.5 mg tablet 7.5 mg PO DAILY 12/12/22 Unk nown History insulin aspart 12 unit subcut TID 02/29/24 Unknown History (niacinamide)(U-100) 100 unit/mL(3 mL) subcutaneous pen (Fiasp FlexTouch U-100 Insulin) tirzepatide 12.5 mg/0.5 mL 12.5 mg subcut TATUM 02/29/24 Unknown History subcutaneous pen injector (Mounjaro) rosuvastatin 20 mg tablet 20 mg PO DAILY 10/17/24 Unkn own History Allergy/AdvReac Type Severity Reaction Status Date / Time naproxen (From Naprosyn) AdvReac Severe COULD NOT Verified 10/17/24 13:23 TASTE ANYTHING Family History Mother Diabetes Surgical History (Updated 10/17/24 @ 13:37 by Sarika Jordan) History of cardiac catheterization History of left heart catheterization (2010) Social History Smoking Status: Never smoker alcohol intake: current what type of physical activity do you participate in: none Audit: Pertinent Findings HISTORY of Pertinent Findings History of Pertinent Findings: EKG Pertinent Findings EKG Perinent findings 10/17/2024. Normal sinus 10/20/24 17:57 rhythm. Nonspecific T wave abnormality. Echo Pertinent Findings Echo (EF%) pertinent findings 01/06/2019. EF 60%. No 10/20/24 17:57 aortic stenosis noted. Consult Pertinent Findings Consult pertinent findings February 29, 2024. 10/20/24 17:59 Lam. 1. Hypertension-well- controlled at this time. Continue current therapy of amlodipine, candesartan, hydrochlorothiazide. 2. Hyperlipidemia-check stress echo. Pertinent Findings Consult pertinent findings: October 22, 2024. Dr. Fritz. Patient has clearance for scheduled surgery. Recommendation Anesthesia Recommendation Anesthesia recommendation: OPTIMIZED for anesthesia
[2024-10-30] VITALS (11 sets, daily range): BP systolic 121–139; BP diastolic 77–98; PULSE 79–89; RESP 16–18; TEMP 36.2–36.9; O2SAT 91–99; BMI 32.8
--- OUTSIDE RECORDS SUMMARY | 2024-10-30 05:33 | XMS RPT_ITS | CCD ---
Author Organization [facility] Care Team Providers Care Assistant Auditor Name Role Phone CRYSTAL MALONE MD Unavailable Unavaila CRYSTAL Barrientos MD Unavailable Unavaila CRYSTAL Barrientos MD Unavailable Unavaila CRYSTAL Barrientos MD Unavailable Unavaila pete PROVIDER, UNKNOWN Unavailable Unavailable Dr. Rolando Holliday Primary Care Provider Unavaila pete Holliday, Dr. Marshall Referring Provider Unavailable Dino TAPPER SHANK, TAPPER SHANK-C Brigette Attending Provider Dr. Rolando Holliday MD Referring Provider Unavaila pete Fritz MD, Dr. Kim Attending Provider Oz TAPPER SHANK-C, [place] Primary Care Provider [phone] Faisal CRAWFORD, Dr. Crystal Browning Attending Provide r Dr. Crystal Malone MD Referring Provide r Julio rFitz Attending Unavailable Julio Fritz Referring Unavailable Oz, [place] [facility] Unavailable Chester Cowart Attending Unavailable Chester Cowart Referring Unavailable Oz, [place] [facility] Unavailable Chester Cowart Referring Unavailable Sherrie Macedo Attending Unavailable Oz, [place] [facility] Unavailable Julio Fritz Attending Unavailable Oz, [place] [facility] Unavailable Rolando Holliday Referring Unavailable Crystal Malone Referring Unavaila ble Oz, [place] [facility] Unavailable RagCrystal mari Attending Unavaila ble Crystal Malone Referring Unavaila ble Oz, [place] [facility] Unavailable Crystal Malone Attending Unavaila ble Allergies Allergy Classification Reported Allergen(s) Allergy Type Date of Onset Reaction(s) Facility (2 sources) Naproxen Drug Allergy 3 COULD NOT TASTE ANYTHING [facility] (1 source) Naproxen Drug Allergy 5 [facility] Repository Medications Current Medications Medication Drug Class(es) Dates Sig (Normalized) Sig (Original) amLODIPine 10 mg oral tablet (3 sources) Dihydropyridine Calcium Channel Jarrett Start: 03-30-2017 take 1 tablet by mouth once daily Amlodipine 10 mg tablet Active 10 mg PO daily March 30, 2017 1:00am atorvastatin 20 mg oral tablet (3 sources) HMG-CoA Reductase Inhibitor Start: 03-30-2017 take 1 tablet by mouth once daily Atorvastatin 20 mg tablet Active 20 mg PO daily March 30, 2017 1:00am BP Cuff and monitor (3 sources) Start: 12-02-2019 BP Cuff and monitor Active December 01, 2019 11:00pm As directed Start: 12-02-2019 BP Cuff and mo nitor Active December 02, 2019 12:00am As directed dapagliflozin 10 mg oral tablet (5 sources) Sodium-Glucose Cotransporter 2 Inhibitor Start: 01-03-2022 take 1 tablet by mouth once daily Dapagliflozin Propanediol (Farxiga) 10 mg tablet Active 10 mg PO DAILY January 03, 2022 12:00am Start: 12-21-2020 End: 01-03-2022 take 1 tablet by mouth once daily Dapagliflozin Propanediol (Farxiga) 5 mg tablet Discontinued 5 mg PO DAILY December 21, 2020 12:00am January 03, 2022 3:21pm hydroCHLOROthiazide 25 mg oral tablet (3 sources) Thiazide Diuretic Start: 03-30-2017 take 1 tablet by mouth once daily Hydrochlorothiazide 25 mg tablet Active 25 mg PO daily March 30, 2017 1:00am 3 ml insulin aspart, human 100 unt/ml pen injector (5 sources) Insulin Analog Start: 02-29-2024 Insulin Aspart (Niacinamide) (Fiasp Flextouch U-100 Insulin) 100 unit/mL (3 mL) insulin pen Active SC February 29, 2024 1:00am Start: 12-12-2022 End: 02-29-2024 Insulin Aspart U-100 (Novolo g Flexpen U-100 Insulin) 100 unit/mL (3 mL) insulin pen Discontinued 12 U SC THREE TIMES A DAY December 12, 2022 9:22am February 29, 2024 2:30pm Start: 12-12-2022 End: 12-12-2022 Insulin Aspart U-100 (Novolo g Flexpen U-100 Insulin) 100 unit/mL (3 mL) insulin pen Discontinued 5 U SC THREE TIMES A DAY December 12, 2022 12:00am December 12, 2022 9:23am Insulin Degludec (Tresiba Flextouch U-100) 100 unit/mL (3 mL) insulin pen (4 sources) Start: 12-12-2022 Insulin Deglud ec (Tresiba Flextouch U-100) 100 unit/mL (3 mL) insulin pen Active 50 U SC DAILY December 12, 2022 9:22am Start: 12-12-2022 Insulin Deglud ec (Tresiba Flextouch U-100) 100 unit/mL (3 mL) insulin pen Active 50 UNIT SC DAILY December 12, 2022 8:22am Start: 12-12-2022 End: 12-12-2022 Insulin Degludec (Tresiba Fl extouch U-100) 100 unit/mL (3 mL) insulin pen Discontinued 5 U SC DAILY December 12, 2022 12:00am December 12, 2022 9:23am Start: 12-12-2022 End: 12-12-2022 Insulin Degludec (Tresiba Fl extouch U-100) 100 unit/mL (3 mL) insulin pen Discontinued 5 UNIT SC DAILY December 11, 2022 11:00pm December 12, 2022 8:23am meloxicam 7.5 mg oral tablet (5 sources) Nonsteroidal Anti-inflammatory Drug Start: 03-30-2017 End: 12-12-2022 take 1 tablet by mouth once daily Meloxicam 7.5 mg tablet Active 7.5 mg PO DAILY December 12, 2022 12:00am metFORMIN hydrochloride 1000 mg oral tablet (3 sources) Biguanide Start: 03-30-2017 take 1 tablet by mouth twice daily Metformin 1,000 mg tablet Active 1000 mg PO TWICE A DAY March 30, 2017 1:00am Tirzepatide (Mounjaro) 12.5 mg/0.5 mL pen injector (1 source) Start: 02-29-2024 Tirzepatide (Mounjaro) 12.5 mg/0.5 mL pen injector Active mg SC EVERY WEEK February 29, 2024 1:00am Completed/Discontinued Medications Medication Drug Class(es) Dates Sig (Normalized) Sig (Original) candesartan cilexetil 32 mg oral tablet (17 sources) Angiotensin 2 Receptor Jarrett Start: 05-07-2018 End: 12-12-2022 take 1 tablet by mouth once daily Candesartan 32 mg tablet Discontinued 0 .ROUTE .COMPLEX 90 April 26, 2021 11:18am December 12, 2022 9:18am TAKE 1 TABLET BY MOUTH EVERY DAY 0.5 ml dulaglutide 3 mg/ml auto-injector (3 sources) GLP-1 Receptor Agonist Start: 05-02-2017 End: 02-29-2024 Dulaglutide (Trulicity) 1.5 mg/0.5 mL pen injector Discontinued 1.5 mg SC EVERY WEEK May 02, 2017 1:00am February 29, 2024 2:28pm glipiZIDE 5 mg oral tablet (6 sources) Sulfonylurea Start: 05-02-2017 End: 12-21-2020 take 1 tablet by mouth once daily Glipizide 5 mg tablet Discontinued 5 mg PO daily May 02, 2017 1:00am December 21, 2020 2:38pm Start: 03-30-2017 End: 05-02-2017 take 1 tablet by mouth once daily Glipizide 10 mg tablet Discontinued 10 mg PO daily March 30, 2017 1:00am May 02, 2017 4:25pm lisinopril 40 mg oral tablet (3 sources) Angiotensin Converting Enzyme Inhibitor Start: 03-30-2017 End: 05-02-2017 take 1 tablet by mouth once daily Lisinopril 40 mg tablet Discontinued 40 mg PO daily March 30, 2017 1:00am May 02, 2017 4:24pm losartan potassium 100 mg oral tablet (3 sources) Angiotensin 2 Receptor Jarrett Start: 05-02-2017 End: 05-07-2018 take 1 tablet by mouth once daily Losartan 100 mg tablet Discontinued 100 mg PO daily May 02, 2017 1:00am May 07, 2018 4:48pm SITagliptin 100 mg oral tablet (3 sources) Dipeptidyl Peptidase 4 Inhibitor Start: 03-30-2017 End: 05-02-2017 take 1 tablet by mouth once daily Sitagliptin Phosphate (Januvia) 100 mg tablet Discontinued 100 mg PO daily March 30, 2017 1:00am May 02, 2017 4:24pm Problems Problem Classification Problem Date Documented Date Episodic/Chronic Diabetes mellitus with complications (1 source) Type 2 diabetes mellitus with hyperglycemia; Translations: [Type 2 diabetes mellitus with hyperglycemia] Onset: 06-17-2024 Chronic Disorders of lipid metabolism (5 sources) Hyperlipidemia; Translations: [Hyperlipidemia, unspecified] 05-02-2017 Chronic Essential hypertension (6 sources) Essential hypertension; Translations: [Essential (primary) hypertension] Onset: 03-21-2024 11-11-2018 Chronic Immunizations and screening for infectious disease (3 sources) Patient encounter status; Translations: [Encounter for screening for COVID-19] 12-23-2021 Episodic Other screening for suspected conditions (not mental disorders or infectious disease) (6 sources) Electrocardiogram abnormal; Translations: [Abnormal electrocardiogram [ECG] [EKG]] 12-23-2021 Episodic Comment on above: ST elevation V1-V5 2 011 norm coronary arteries Results Test Name Value Interpretation Reference Range Facility MR/Juan David 10-23-2024 /PAT.[facility] Medical Records Department [address] [place] [address] PAT - Anesthesia 10/23/24 1529 MR#: [id number] Acct: [id number] Name: CHRISTEN OWEN Rep #: [id number] : 1970 54 From: Chicho Gunn MD PCP: JESSY Sanchez [place] [facility] [place] Race: AA [place] [facility] [place] Pre-Assessment Diagnosis/Proposed Procedure Planned Operative Procedure(s): (R) RIGHT SHOULDER ARTHROSCOPIC ROTATOR CUFF REPAIR, SUBACROMIAL DECOMPRESSION, MINI OPEN BICEPS TENODESIS AND CAPSULAR RELEASE Anesthesia History Anesthesia History - squeak rattle and leak repairer: Anesthesia History - squeak rattle and leak repairer Hx Hospitalization No 10/17/24 13:31 Any Problems With Anesthesia No 10/17/24 13:31 Cholinesterase deficiency No 10/17/24 13:31 You/Your Family Experience No 10/17/24 13:31 fever (hyperthermia) with Relationship Recent Exposure to Contagious Disease Does patient have nerve No 10/17/24 13:31 stimulator Patient instructed to have device shut off --Does patient have Pacemaker or ICD? When Was Last Pacemaker Check QUESTION #4 FULL TEXT: You/Your Family Experience fever (hyperthermia) with Anesthesia Last Oral Intake Last Oral intake: Last Oral Intake NPO since Meds taken in AM with sips of water? Meds patient instructed to take am of surgery PONV PONV - squeak rattle and leak repairer: PONV - squeak rattle and leak repairer Female No 10/17/24 13:31 HX of Motion Sickness No 10/17/24 13:31 HX of N/V After Surgery No 10/17/24 13:31 Non-Smoker Yes 10/17/24 13:31 Duration of Surgery greater Yes 10/17/24 13:31 than 60 minutes Number of Risk Factors 2 10/17/24 13:31 PONV Score Moderate Risk 10/17/24 13:31 Height Weight Height Weight: Anesthesia: Height Weight Height 5 ft 9 in 02/29/24 13:26 Respiratory Assessment Respiratory Assessment - squeak rattle and leak repairer: Respiratory Tract Infection Hx - squeak rattle and leak repairer Hx Respiratory Tract Infection No 10/17/24 13:31 STOP Sleep Apnea STOP Sleep Apnea - squeak rattle and leak repairer: STOP Sleep Apnea - squeak rattle and leak repairer Hx Hypertension Yes 10/17/24 13:31 Hx Sleep Apnea Yes 10/17/24 13:31 CPAP Yes: NON COMPLIANT 10/17/24 13:31 BIPAP No 10/17/24 13:31 Do you snore loudly (louder than talking or can be heard Do you often feel tired/ fatigued/ sleepy during daytime? Has anyone observed you stop breathing during sleep? STOP Results Positive 10/17/24 13:31 QUESTION #5 FULL TEXT : Do you snore loudly (louder than talking or can be heard through closed doors)? 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 Specify any problems Hx of Preganancy in last 3 N/A 10/17/24 13:31 Months Nurse Filling Out Transfusion KP 10/17/24 13:31 Questions: Date: 10/17/24 10/17/24 13:31 Time: 13:38 10/17/24 13:31 Patient unable to answer at this time (ie. confused, unrespo /Reproductio n History /Reproductiv e History - squeak rattle and leak repairer: /Reproductiv e Hx- squeak rattle and leak repairer Hx Now Gestational Age (in weeks): EDC: Hx Hx Para Hx Section SAB [facility] Medical History (Updated 10/17/24 @ 13:37 by Sarika Jordan) Wears glasses Insulin dependent diabetes mellitus Diabetes High cholesterol History of diverticulitis Non-smoker CPAP (continuous positive airway pressure) dependence Sleep apnea Hypertension History of echocardiogram Cardiology follow-up encounter Abnormal electrocardiogram Obesity Type 2 diabetes mellitus Essential (primary) hypertension Hyperlipidemia Home Medications ???Medication ???Instructions ???Recorded ???Last Taken ???Type amlodipine 10 mg tablet 10 mg PO QDAY 03/30/17 Unknown His tory hydrochlorothiazide 25 mg tablet 25 mg PO QDAY 03/30/17 Unknown His tory metformin 1,000 mg tablet 1,000 mg PO BID 03/30/17 Unknown H istory BP Cuff and monitor #1 ea 12/02/19 Unknown Rx dapagliflozin propanediol 10 mg 10 mg PO DAILY 01/03/22 Unknown Hi story tablet () candesartan 32 mg tablet 32 m (more content not included)... Normal [facility] MR/PAT.Tanya 10-20-2024 MR/PAT.[facility] Medical Records Department [address] [place] [address] PAT - Anesthesia 10/20/24 1753 MR#: [id number] Acct: [id number] Name: CHRISTEN OWEN Rep #: [id number] : 1970 54 From: Chicho Gunn MD PCP: JESSY Sanchez Status[place] [facility] [place] Race: AA [place] [facility] [place] Pre-Assessment Diagnosis/Proposed Procedure Planned Operative Procedure(s): (R) RIGHT SHOULDER ARTHROSCOPIC ROTATOR CUFF REPAIR, SUBACROMIAL DECOMPRESSION, MINI OPEN BICEPS TENODESIS AND CAPSULAR RELEASE Anesthesia History Anesthesia History - squeak rattle and leak repairer: Anesthesia History - squeak rattle and leak repairer Hx Hospitalization No 10/17/24 13:31 Any Problems With Anesthesia No 10/17/24 13:31 Cholinesterase deficiency No 10/17/24 13:31 You/Your Family Experience No 10/17/24 13:31 fever (hyperthermia) with Relationship Recent Exposure to Contagious Disease Does patient have nerve No 10/17/24 13:31 stimulator Patient instructed to have device shut off --Does patient have Pacemaker or ICD? When Was Last Pacemaker Check QUESTION #4 FULL TEXT: You/Your Family Experience fever (hyperthermia) with Anesthesia Last Oral Intake Last Oral intake: Last Oral Intake NPO since Meds taken in AM with sips of water? Meds patient instructed to take am of surgery PONV PONV - squeak rattle and leak repairer: PONV - squeak rattle and leak repairer Female No 10/17/24 13:31 HX of Motion Sickness No 10/17/24 13:31 HX of N/V After Surgery No 10/17/24 13:31 Non-Smoker Yes 10/17/24 13:31 Duration of Surgery greater Yes 10/17/24 13:31 than 60 minutes Number of Risk Factors 2 10/17/24 13:31 PONV Score Moderate Risk 10/17/24 13:31 Height Weight Height Weight: Anesthesia: Height Weight Height 5 ft 9 in 02/29/24 13:26 Respiratory Assessment Respiratory Assessment - squeak rattle and leak repairer: Respiratory Tract Infection Hx - squeak rattle and leak repairer Hx Respiratory Tract Infection No 10/17/24 13:31 STOP Sleep Apnea STOP Sleep Apnea - squeak rattle and leak repairer: STOP Sleep Apnea - squeak rattle and leak repairer Hx Hypertension Yes 10/17/24 13:31 Hx Sleep Apnea Yes 10/17/24 13:31 CPAP Yes: NON COMPLIANT 10/17/24 13:31 BIPAP No 10/17/24 13:31 Do you snore loudly (louder than talking or can be heard Do you often feel tired/ fatigued/ sleepy during daytime? Has anyone observed you stop breathing during sleep? STOP Results Positive 10/17/24 13:31 QUESTION #5 FULL TEXT : Do you snore loudly (louder than talking or can be heard through closed doors)? 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 Specify any problems Hx of Preganancy in last 3 N/A 10/17/24 13:31 Months Nurse Filling Out Transfusion [facility] 10/17/24 13:31 Questions: Date: 10/17/24 10/17/24 13:31 Time: 13:38 10/17/24 13:31 Patient unable to answer at this time (ie. confused, unrespo /Reproductio n History /Reproductiv e History - squeak rattle and leak repairer: /Reproductiv e Hx- squeak rattle and leak repairer Hx Now Gestational Age (in weeks): EDC: Hx Hx Para Hx Section SAB [facility] Medical History (Updated 10/17/24 @ 13:37 by Sarika Jordan) Wears glasses Insulin dependent diabetes mellitus Diabetes High cholesterol History of diverticulitis Non-smoker CPAP (continuous positive airway pressure) dependence Sleep apnea Hypertension History of echocardiogram Cardiology follow-up encounter Abnormal electrocardiogram Obesity Type 2 diabetes mellitus Essential (primary) hypertension Hyperlipidemia Home Medications ???Medication ???Instructions ???Recorded ???Last Taken ???Type amlodipine 10 mg tablet 10 mg PO QDAY 03/30/17 Unknown His tory hydrochlorothiazide 25 mg tablet 25 mg PO QDAY 03/30/17 Unknown His tory metformin 1,000 mg tablet 1,000 mg PO BID 03/30/17 Unknown H istory BP Cuff and monitor #1 ea 12/02/19 Unknown Rx dapagliflozin propanediol 10 mg 10 mg PO DAILY 01/03/22 Unknown Hi story tablet () candesartan 32 mg tablet 32 m (more content not included)... Normal [facility] 12 Lead EKGon 10-17-2024 12 Lead EKG [facility] Cardiovascular Services [address] [place] [address] 12 Lead EKG 10/17/2415 MR#: [id number] Acct: [id number] Name: CHRISTEN OWEN Rep #: [id number] : 1970 54 From: Sherrie Macedo MD Attending Dr: Dr. Chester Cowart DO Status: [place] [facility] [place] Ordering Dr: Chester Cowart DO Date: 10/17/24 Location[place] [facility] [place] Sex: M AA Admitted: Test Reason : PREOP Blood Pressure : */* mmHG Vent. Rate : 81 BPM Atrial Rate : 81 BPM P-R Int : 174 ms QRS Dur : 82 ms QT Int : 380 ms P-R-T Axes : 34 16 29 degrees QTcB Int : 441 ms Normal sinus rhythm Nonspecific T wave abnormality Abnormal ECG Confirmed by SHERRIE MACEDO ([id number]), assignment editor MORALES ZAZUETA ([id number]) on 10/20/2024 6:43:40 AM Referred By: Chester Cowart Confirmed By: SHERRIE MACEDO 10/20/24 0643 Date Sherrie Macedo MD CC: TAPPER SHANK-C Thelma Clinton; Dr. Chester Cowart DO Signed Normal [facility] Basic Metabolic Profile (BMP )on 10-17-2024 BUN/CRE 14.5 RATIO Normal 10-20 [facility] Comment on above: Performed By: #### L 501.9985, L100.0100, L500.2500 ####[facility] [address] [place], [address] Calcium [Mass/Vol] 10.0 mg/dL Normal 7.6-11.0 [facility] Comment on above: Performed By: #### L 501.9985, L100.0100, L500.2500 ####[facility] [address] [place], [address] Chloride [Moles/Vol] 102 mmol/L Normal 98-108 [facility] Comment on above: Performed By: #### L 501.9985, L100.0100, L500.2500 ####[facility] [address] [place], [address] CO2 [Moles/Vol] 22.6 mmol/L Normal 21.0-32.0 [facility] Comment on above: Performed By: #### L 501.9985, L100.0100, L500.2500 ####[facility] [address] [place], [address] Creatinine [Mass/Vol] 1.45 mg/dL High 0.70-1.20 [facility] Comment on above: Performed By: #### L 501.9985, L100.0100, L500.2500 ####[facility] [address] [place], [address] GAP 14 Normal 5-15 [facility] Comment on above: Performed By: #### L 501.9985, L100.0100, L500.2500 ####[facility] [address] [place], [address] GFR/1.73 sq M.predicted among non-blacks MDRD (S/P/Bld) [Vol rate/Area] 57 mL/min/{1.73_m2} Low >60 [facility] Comment on above: Result Comment: mL/m in/1.73m2 CKD-EPI Creatinine Equation (2020) Performed By: #### L 501.9985, L100.0100, L500.2500 ####[facility] [address] [place], [address] Glucose [Mass/Vol] 145 mg/dL High 70-99 [facility] Comment on above: Performed By: #### L 501.9985, L100.0100, L500.2500 ####[facility] [address] [place], [address] Potassium [Moles/Vol] 3.9 mmol/L Normal 3.3-5.1 [facility] Comment on above: Result Comment: Hemo lysis present, Results??could be affected. ?? Performed By: #### L 501.9985, L100.0100, L500.2500 ####[facility] [address] [place], [address] Sodium [Moles/Vol] 139 mmol/L Normal 133-145 [facility] Comment on above: Performed By: #### L 501.9985, L100.0100, L500.2500 ####[facility] [address] [place], [address] Urea nitrogen [Mass/Vol] 21 mg/dL High 4-19 [facility] Comment on above: Performed By: #### L 501.9985, L100.0100, L500.2500 ####[facility] [address] [place], [address] CBC W/Diff, Automatedon 08-0 8-2025 Absolute Lymph 1.75 X10 3/uL Normal 0.83-4.51 [facility] Comment on above: Performed By: #### L 501.9985, L100.0100, L500.2500 #### [facility] [address] [place], [address] Absolute Neut 3.7 X10 3/uL Normal 2.0-7.7 [facility] Comment on above: Performed By: #### L 501.9985, L100.0100, L500.2500 #### [facility] [address] [place], [address] Basophils/100 WBC (Bld) 0.6 % Normal 0-1 [facility] Comment on above: Performed By: #### L 501.9985, L100.0100, L500.2500 #### [facility] [address] [place], [address] Eosinophils/100 WBC (Bld) 6.6 % High 0-5 [facility] Comment on above: Performed By: #### L 501.9985, L100.0100, L500.2500 #### [facility] [address] [place], [address] Erythrocyte distribution width (RBC) [Ratio] 13.4 % Normal 11.6-14.6 [facility] Comment on above: Performed By: #### L 501.9985, L100.0100, L500.2500 #### [facility] [address] [place], [address] Hematocrit (Bld) [Volume fraction] 42.1 % Normal 40-54 [facility] Comment on above: Performed By: #### L 501.9985, L100.0100, L500.2500 #### [facility] [address] [place], [address] Hemoglobin (Bld) [Mass/Vol] 13.7 g/dL Normal 13.0-16.5 [facility] Comment on above: Performed By: #### L 501.9985, L100.0100, L500.2500 #### [facility] [address] [place], [address] IG% 0.900 Normal 0.0-0.9 [facility] Comment on above: Result Comment: IG% - Immature Granulocytes (promyelocytes, myelocytes and metamyelocytes) > 1% indicates that a LEFT SHIFT is Present. Performed By: #### L 501.9985, L100.0100, L500.2500 #### [facility] [address] [place], [address] Lymphocytes/100 WBC (Bld) 27.6 % Normal 19-41 [facility] Comment on above: Performed By: #### L 501.9985, L100.0100, L500.2500 #### [facility] [address] [place], [address] MCH (RBC) [Entitic mass] 27.8 pg Normal 27.0-32.0 [facility] Comment on above: Performed By: #### L 501.9985, L100.0100, L500.2500 #### [facility] [address] [place], [address] MCHC (RBC) [Mass/Vol] 32.5 g/dL Normal 32-36 [facility] Comment on above: Performed By: #### L 501.9985, L100.0100, L500.2500 #### [facility] [address] [place], [address] MCV (RBC) [Entitic vol] 85.6 fL Normal 80-[address] [facility] Comment on above: Performed By: #### L 501.9985, L100.0100, L500.2500 #### [facility] [address] [place], [address] Monocytes/100 WBC (Bld) 6.0 % Normal 0-10 [facility] Comment on above: Performed By: #### L 501.9985, L100.0100, L500.2500 #### [facility] [address] [place], [address] Neutrophils/100 WBC (Bld) 58.3 % Normal 47-70 [facility] Comment on above: Performed By: #### L 501.9985, L100.0100, L500.2500 #### [facility] [address] [place], [address] Nucleated RBC (Bld) [#/Vol] 0 10*3/uL Normal 0-5 [facility] Comment on above: Performed By: #### L 501.9985, L100.0100, L500.2500 #### [facility] [address] [place], [address] Platelet mean volume (Bld) [Entitic vol] 9.5 fL Normal 6.2-12.0 [facility] Comment on above: Performed By: #### L 501.9985, L100.0100, L500.2500 #### [facility] [address] [place], [address] Platelets (Bld) [#/Vol] 288 10*3/uL Normal 150-450 [facility] Comment on above: Performed By: #### L 501.9985, L100.0100, L500.2500 #### [facility] [address] [place], [address] RBC (Bld) [#/Vol] 4.92 10*6/uL Normal 4.6-6.2 [facility] Comment on above: Performed By: #### L 501.9985, L100.0100, L500.2500 #### [facility] [address] [place], [address] RDW SD 41.9 fl Normal 35.1-43.9 [facility] Comment on above: Performed By: #### L 501.9985, L100.0100, L500.2500 #### [facility] [address] [place], [address] WBC (Bld) [#/Vol] 6.4 10*3/uL Normal 4.4-11.0 [facility] Comment on above: Performed By: #### L 501.9985, L100.0100, L500.2500 #### [facility] [address] [place], [address] Hemoglobin A1con - HbA1c (Bld) [Mass fraction] 6.2 % High <=5.6 [facility] Comment on above: Result Comment: Norm al < 5.7 % Prediabetic 5.7 - 6.4 % Diabetic >or= 6.5 % Please note range changes. Performed By: #### L 501.9985, L100.0100, L500.2500 ####[facility] [address] [place], [place], [id number] Albumin DL <= 20 mg/L (U) [M ass/Vol]Ordered By: Crystal Malone on 06-12-2024 Urine Random Microalbumin < 12.0 mg/L NO RANGE EST. [facility] Anion gap in Serum or Plasma Ordered By: Crystal Malone on 06-12-2024 Anion gap [Moles/Vol] 15 mmol/L 5-15 [facility] BUN/creatinine ratioOrdered By: Crystal Malone on 06-12-2024 Urea nitrogen/Creatinine [Mass ratio] 18.1 mg/mg 10-20 [facility] Bilirubin, totalOrdered By: Crystal Malone on 06-12-2024 Bilirubin [Mass/Vol] 0.75 mg/dL 0.00-1.30 [facility] CPK Total, Creatine Kinaseon 06-12-2024 CPK TOTAL 83 U/L Normal 24-195 [facility] Comment on above: Performed By: #### L 501.3620, L502.0250, L500.4100, L501.9985, L500.4050, L506.1001 #### [facility] [address] [place], [place], [id number] Calculated very low density lipoprotein (VLDL) cholesterol measurementOrdered By: Crystal Malone on 06-12-2024 VLDL Cholesterol 75 mg/dL High 5-40 [facility] Carbon dioxide, total [Moles /volume] in Central venous bloodOrdered By: Crystal Malone on 06-12-2024 CO2 [Moles/Vol] 21.1 mmol/L 21.0-32.0 [facility] Chloride assayOrdered By: Ron Malone on 06-12-2024 Chloride [Moles/Vol] 102 mmol/L 98-108 [facility] Comprehensive Metabolic Prof ilon 06-12-2024 Albumin [Mass/Vol] 4.7 g/dL Normal 3.5-5.0 [facility] Comment on above: Performed By: #### L 501.3620, L502.0250, L500.4100, L501.9985, L500.4050, L506.1001 #### [facility] [address] [place], [address] Albumin/Globulin [Mass ratio] 1.4 {ratio} Normal 0.9-2.4 [facility] Comment on above: Performed By: #### L 501.3620, L502.0250, L500.4100, L501.9985, L500.4050, L506.1001 #### [facility] [address] [place], [address] ALK PHOS 81 U/L Normal 40-129 [facility] Comment on above: Performed By: #### L 501.3620, L502.0250, L500.4100, L501.9985, L500.4050, L506.1001 #### [facility] [address] [place], [address] ALT [Catalytic activity/Vol] 34 U/L Normal <=46 [facility] Comment on above: Performed By: #### L 501.3620, L502.0250, L500.4100, L501.9985, L500.4050, L506.1001 #### [facility] [address] [place], [address] AST [Catalytic activity/Vol] 20 U/L Normal <=37 [facility] Comment on above: Performed By: #### L 501.3620, L502.0250, L500.4100, L501.9985, L500.4050, L506.1001 #### [facility] [address] [place], [address] Bilirubin [Mass/Vol] 0.75 mg/dL Normal 0.00-1.30 [facility] Comment on above: Performed By: #### L 501.3620, L502.0250, L500.4100, L501.9985, L500.4050, L506.1001 #### [facility] [address] [place], [address] BUN/CRE 18.1 RATIO Normal 10-20 [facility] Comment on above: Performed By: #### L 501.3620, L502.0250, L500.4100, L501.9985, L500.4050, L506.1001 #### [facility] [address] [place], [address] Calcium [Mass/Vol] 9.9 mg/dL Normal 7.6-11.0 [facility] Comment on above: Performed By: #### L 501.3620, L502.0250, L500.4100, L501.9985, L500.4050, L506.1001 #### [facility] [address] [place], [address] Chloride [Moles/Vol] 102 mmol/L Normal 98-108 [facility] Comment on above: Performed By: #### L 501.3620, L502.0250, L500.4100, L501.9985, L500.4050, L506.1001 #### [facility] [address] [place], [address] CO2 [Moles/Vol] 21.1 mmol/L Normal 21.0-32.0 [facility] Comment on above: Performed By: #### L 501.3620, L502.0250, L500.4100, L501.9985, L500.4050, L506.1001 #### [facility] [address] [place], [address] Creatinine [Mass/Vol] 1.33 mg/dL High 0.70-1.20 [facility] Comment on above: Performed By: #### L 501.3620, L502.0250, L500.4100, L501.9985, L500.4050, L506.1001 #### [facility] [address] [place], [address] GAP 15 Normal 5-15 [facility] Comment on above: Performed By: #### L 501.3620, L502.0250, L500.4100, L501.9985, L500.4050, L506.1001 #### [facility] [address] [place], [address] GFR/1.73 sq M.predicted among non-blacks MDRD (S/P/Bld) [Vol rate/Area] 64 mL/min/{1.73_m2} Normal >60 [facility] Comment on above: Result Comment: mL/m in/1.73m2 CKD-EPI Creatinine Equation (2020) Performed By: #### L 501.3620, L502.0250, L500.4100, L501.9985, L500.4050, L506.1001 #### [facility] [address] [place], [address] Globulin (S) [Mass/Vol] 3.3 g/dL Normal 2.2-4.[address] [facility] Comment on above: Performed By: #### L 501.3620, L502.0250, L500.4100, L501.9985, L500.4050, L506.1001 #### [facility] [address] [place], [address] Glucose [Mass/Vol] 147 mg/dL High 70-99 [facility] Comment on above: Performed By: #### L 501.3620, L502.0250, L500.4100, L501.9985, L500.4050, L506.1001 #### [facility] [address] [place], [address] Potassium [Moles/Vol] 3.9 mmol/L Normal 3.3-5.1 [facility] Comment on above: Performed By: #### L 501.3620, L502.0250, L500.4100, L501.9985, L500.4050, L506.1001 #### [facility] [address] [place], [address] Sodium [Moles/Vol] 138 mmol/L Normal 133-145 [facility] Comment on above: Performed By: #### L 501.3620, L502.0250, L500.4100, L501.9985, L500.4050, L506.1001 #### [facility] [address] [place], [address] T PROT 8.0 g/dL Normal 5.9-8.4 [facility] Comment on above: Performed By: #### L 501.3620, L502.0250, L500.4100, L501.9985, L500.4050, L506.1001 #### [facility] [address] [place], [address] Urea nitrogen [Mass/Vol] 24 mg/dL High 4-19 [facility] Comment on above: Performed By: #### L 501.3620, L502.0250, L500.4100, L501.9985, L500.4050, L506.1001 #### [facility] [address] [place], [address] Creatinine Unsp time (U) [Ma ss/Vol]Ordered By: Crystal Malone on 06-12-2024 Creatinine (U) [Mass/Vol] 92.10 mg/dL 39.00-259.00 [facility] GFR/1.73 sq M.predicted heena g non-blacks MDRD (S/P/Bld) [Vol rate/Area]Ordered By: Crystal Malone on 06-12-2024 Estimated GFR (MDRD) Non-Af Amer 64 >60 [facility] Comment on above: mL/min/1.73m2 CKD-EP I Creatinine Equation (2020) Hemoglobin A1con 06-12-2024 HbA1c (Bld) [Mass fraction] 7.0 % Normal <=5.6 [facility] Comment on above: Performed By: #### L 501.3620, L502.0250, L500.4100, L501.9985, L500.4050, L506.1001 #### [facility] [address] [place], [place], [address] Hemoglobin A1c percentageOrd ered By: Crystal Malone on 06-12-2024 HbA1c (Bld) [Mass fraction] 7.0 % >5.7 [facility] LDL calc ser/plasOrdered By: Crystal Malone on 06-12-2024 LDL Cholesterol, Calculated -2 mg/dL [facility] Comment on above: Vyomxthqho=388-961 m g/dL & Higher Auzs=993 mg/dL or greater Laboratory - Chemistry and C hemistry - challengeOrdered By: Crystal Malone on 06-12-2024 AST [Catalytic activity/Vol] 20 U/L <38 [facility] Lipid Profileon 06-12-2024 CHOL:HDL 3.29 Normal [facility] Comment on above: Performed By: #### L 501.3620, L502.0250, L500.4100, L501.9985, L500.4050, L506.1001 #### [facility] [address] [place], [address] Cholesterol [Mass/Vol] 105 mg/dL Normal <=200 [facility] Comment on above: Result Comment: Chol esterol level, Desirable <200 mg/dL Borderline high cholesterol 200-239 mg/dL High cholesterol >=240 mg/dL Recommendations of the NCEP Adult Treatment Panel for the following risk-cutoff thresholds for the [place] population. Performed By: #### L 501.3620, L502.0250, L500.4100, L501.9985, L500.4050, L506.1001 #### [facility] [address] [place], [address] Cholesterol in HDL [Mass/Vol] 32 mg/dL Low [facility] Comment on above: Result Comment: Monique onal Cholesterol Education Program (NCEP) guidelines: <40 mg/dL: Low HDL-cholesterol (major risk factor for CHD) >= 60 mg/dL: High HDL-cholesterol (negative risk factor for CHD) HDL-cholesterol is affected by a number of factors, e.g. smoking, exercise, hormones, sex and age. Performed By: #### L 501.3620, L502.0250, L500.4100, L501.9985, L500.4050, L506.1001 #### [facility] [address] [facility] [place], [address] Cholesterol in LDL [Mass/Vol] -2 mg/dL Normal [facility] Comment on above: Result Comment: Bord jxuznl=113-540 mg/dL Higher Itns=595 mg/dL or greater Performed By: #### L 501.3620, L502.0250, L500.4100, L501.9985, L500.4050, L506.1001 #### [facility] [address] [place], [address] Cholesterol in VLDL [Mass/Vol] 75 mg/dL High 5-40 [facility] Comment on above: Performed By: #### L 501.3620, L502.0250, L500.4100, L501.9985, L500.4050, L506.1001 #### [facility] [address] [place], [address] Triglyceride [Mass/Vol] 374 mg/dL High [facility] Comment on above: Result Comment: The drugs N-Acetylcysteine and Metamizole may falsely depress this assay. Normal range: <150 mg/dL Borderline High: 150-199 mg/dL High: 200-499 mg/dL Very High: >500 mg/dL Performed By: #### L 501.3620, L502.0250, L500.4100, L501.9985, L500.4050, L506.1001 #### [facility] [address] [place], [address] Microalb:Creat Ratio,Random URon 06-12-2024 Creatinine [Mass/Vol] 92.10 mg/dL Normal 39.00-259.00 [facility] Comment on above: Performed By: #### L 501.3620, L502.0250, L500.4100, L501.9985, L500.4050, L506.1001 #### [facility] [address] [place], [place], [id number] (762) MALB:CREAT UNABLE TO CALCULATE Normal [facility] Comment on above: Performed By: #### L 501.3620, L502.0250, L500.4100, L501.9985, L500.4050, L506.1001 #### [facility] [address] [place], [address] MICROALBUMIN,UR < 12.0 Normal NO RANGE EST. [facility] Comment on above: Performed By: #### L 501.3620, L502.0250, L500.4100, L501.9985, L500.4050, L506.1001 #### [facility] [address] [place], [address] Microalbumin/creat ratio urO rdered By: Crystal Malone on 06-12-2024 Urine Microalbumin/Creatinine Ratio UNABLE TO CALCULATE mg/g CRE [facility] Potassium (Unsp spec) [Mass/ Vol]Ordered By: Crystal Malone on 06-12-2024 Potassium [Moles/Vol] 3.9 mmol/L 3.3-5.1 [facility] Screening total cholesterol/ high density lipoprotein (HDL) cholesterol ratioOrdered By: Crystal Malone on 06-12-2024 Cholesterol.total/Flor sterol in HDL [Mass ratio] 3.29 {ratio} [facility] Serum creatinine measurement (mass/volume)Ordered By: Crystal Malone on 06-12-2024 Creatinine [Mass/Vol] 1.33 mg/dL High 0.70-1.20 [facility] Serum globulin measurementOr dered By: Crystal Malone on 06-12-2024 Globulin (S) [Mass/Vol] 3.3 g/dL 2.2-4.2 [facility] Serum glucose measurement (m ass/volume)Ordered By: Crystal Malone on 06-12-2024 Glucose [Mass/Vol] 147 mg/dL High 70-99 [facility] Serum or plasma alanine tejeda otransferase (ALT) measurementOrdered By: Crystal Malone on 06-12-2024 ALT [Catalytic activity/Vol] 34 U/L <47 [facility] Serum or plasma albumin ernesto urement (mass/volume)Ordered By: Crystal Malone on 06-12-2024 Albumin [Mass/Vol] 4.7 g/dL 3.5-5.0 [facility] Serum or plasma albumin/glob ulin mass ratioOrdered By: Crystal Malone on 06-12-2024 Albumin/Globulin [Mass ratio] 1.4 {ratio} 0.9-2.4 [facility] Serum or plasma alkaline daniella sphatase measurementOrdered By: Crystal Malone on 06-12-2024 ALP [Catalytic activity/Vol] 81 U/L 40-129 [facility] Serum or plasma calcium ernesto urement (mass/volume)Ordered By: Crystal Malone on 06-12-2024 Calcium [Mass/Vol] 9.9 mg/dL 7.6-11.0 [facility] Serum or plasma cholesterol in HDL measurement (mass/volume)Ordered By: Crystal Malone on 06-12-2024 Cholesterol in HDL [Mass/Vol] 32 mg/dL Low >40 [facility] Comment on above: National Cholesterol Education Program (NCEP) guidelines:<40 mg/dL: Low HDL-cholesterol (major risk factor for CHD)>= 60 mg/dL: High HDL-cholesterol (negative risk factor for CHD)HDL-cholesterol is affected by a number of factors, e.g. smoking, exercise, hormones, sex and age. Serum or plasma cholesterol measurement (mass/volume)Ordered By: Crystal Malone on 06-12-2024 Cholesterol [Mass/Vol] 105 mg/dL <201 [facility] Comment on above: Cholesterol level, D esirable <200 mg/dLBorderline high cholesterol 200-239 mg/dLHigh cholesterol >=240 mg/dLRecommendations of the NCEP Adult Treatment Panel for the following risk-cutoff thresholds for the [place] population. Serum or plasma creatine kin ase activityOrdered By: Crystal Malone on 06-12-2024 CK [Catalytic activity/Vol] 83 U/L 24-195 [facility] Serum or plasma urea nitroge n measurement (mass/volume)Ordered By: Crystal Malone on 06-12-2024 Urea nitrogen [Mass/Vol] 24 mg/dL High 4-19 [facility] Sodium levelOrdered By: Bennie Malone on 06-12-2024 Sodium [Moles/Vol] 138 mmol/L 133-145 [facility] Total proteinOrdered By: Juan Malone on 06-12-2024 Protein [Mass/Vol] 8.0 g/dL 5.9-8.4 [facility] Triglycerides measurementOrd ered By: Crystal Malone on 06-12-2024 Triglyceride [Mass/Vol] 374 mg/dL High <199 [facility] Comment on above: The drugs N-Acetylcy steine and Metamizole may falsely depress this assay. Normal range: <150 mg/dLBorderline High: 150-199 mg/dLHigh: 200-499 mg/dLVery High: >500 mg/dL Vitamin D, 25-hydroxyOrdered By: Crystal Malone on 06-12-2024 Vitamin D 25-Hydroxy 15.0 ng/mL Low 30-100 [facility] Comment on above: Vitamin D StatusDefi ciency: <20 ng/mL (50nmol/L)Insufficiency: 20-30 ng/mL (50-75 nmol/L)Sufficiency: 30-100 ng/mL (75-250 nmol/L)Toxicity: >100 ng/mL (>250 nmol/L) Vitamin D,25 Hydroxyon 06-12 Vitamin D 25-OH 15.0 ng/mL Low 30-100 [facility] Comment on above: Result Comment: Sandy min D Status Deficiency: <20 ng/mL (50nmol/L) Insufficiency: 20-30 ng/mL (50-75 nmol/L) Sufficiency: 30-100 ng/mL (75-250 nmol/L) Toxicity: >100 ng/mL (>250 nmol/L) Performed By: #### L 501.3620, L502.0250, L500.4100, L501.9985, L500.4050, L506.1001 #### [facility] [address] [place], [address] Cardiology Visit Reporton Cardiology Visit Report [facility] [address] [place], [place] [address] OFFICE VISIT Date of Service: 02/29/24 MR#: [id number] Acct: [id number] Name: CHRISTEN OWEN Rep #: [id number] : 1970 Provider: Dr. Julio Fritz MD Age/Sex: 53/M Location: [facility] [place] Status: Signed HPI HPI History of Present Illness Details: CHRISTEN OWEN, is a 53 M who presents to the office today for a cardiovascular outpatient follow- up. Patient has history of hypertension, hyperlipidemia, and abnormal EKG, which is unclear if was a Brugada abnormality. With his most recent EKG it appears to have normalized. From a cardiac standpoint, the patient is doing well. He denies any palpitations, chest pain, pressure or heaviness. He denies SOB, Orthopnea, and PND. He does not have bleeding issues; no blood in urine, stool or nosebleeds. He denies any decrease in energy level, myalgias, or claudication. He does acknowledge bilateral lower extremity edema when he stands 12 hour shifts at work. He states this is relieved with elevation. He denies sudden weight gain. He denies dizziness, lightheadedness, syncopal or near syncopal episodes, and headaches. 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: No Accompanied by: Self Is patient in pain?: No Allergies naproxen (From Naprosyn) Adverse Reaction (Severe, Verified 02/29/24 13:27) COULD NOT TASTE ANYTHING Medications ???Medication ???Instructions ???Recorded ???Confirmed ???Type amlodipine 10 mg tablet 10 mg PO QDAY 03/30/17 02/29/24 History atorvastatin 20 mg tablet 20 mg PO QDAY 03/30/17 02/29/24 History hydrochlorothiazide 25 mg tablet 25 mg PO QDAY 03/30/17 02/29/24 History metformin 1,000 mg tablet 1,000 mg PO BID 03/30/17 02/29/24 History BP Cuff and monitor #1 ea 12/02/19 01/03/22 Rx dapagliflozin propanediol 10 mg 10 mg PO DAILY 01/03/22 02/29/24 History tablet (Farxiga) candesartan 32 mg tablet 32 mg PO DAILY 12/12/22 02/29/24 History insulin degludec 100 unit/mL (3 50 unit subcut DAILY 12/12/22 02/29/24 History mL) subcutaneous pen (Tresiba FlexTouch U-100 insulin) meloxicam 7.5 mg tablet 7.5 mg PO DAILY 12/12/22 02/29/24 History insulin aspart subcut 02/29/24 02/29/24 History (niacinamide)(U-100) 100 unit/mL(3 mL) subcutaneous pen (Fiasp FlexTouch U-100 Insulin) tirzepatide 12.5 mg/0.5 mL mg subcut QWEEK 02/29/24 02/29/24 History subcutaneous pen injector (Mounjaro) Have you fallen in the past year?: No [facility] Medical History Abnormal electrocardiogram Obesity Type 2 diabetes mellitus Essential (primary) hypertension Hyperlipidemia Surgical History History of left heart catheterization (2010) Family History Mother Diabetes Social History Smoking Status: Never smoker alcohol intake: current what type of physical activity do you participate in: none ROS Const Const: Negative for fatigue, weakness, headache(s), daytime sleepiness or difficulty sleeping ENT ENT: Negative for headache(s), dizziness or Nosebleed/epistaxis Cardio Chest Pain: No Palpitations: No Edema: Bilateral (BLE- trace at times ) Resp Respiratory: Negative for SOB with activity, SOB at rest, SOB orthopnea SOB lying down or Cough GI GI: Negative nausea, vomiting or heartburn Musc Musc: Positive for joint pain (shoulder) Neuro Neuro: Negative for dizziness, lightheadedness, near syncope, headache(s) or weakness Endo Endo: Negative for fatigue Supplemental Info Supplemental Information Echocardiogram 01/06/2019: Interpretation Summary Normal LV size. Left ventricular systolic function is normal. The estimated ejection fraction is 60 %. Stage 2 diastolic dysfunction. Labs: LDL Cholesterol 13 mg/dL (0-130) HDL Cholesterol 38 mg/dL (40-) L Cholesterol 89 mg/dL (200) Triglycerides 189 mg/dL (-199) Diagnostics: Electrocardiogram Echocardiogram Pulmonary: No Data to Display Past Visits: Cardiology Visit 02/29/24 Assessment and Plan Assessment and Plan (1) Essential (primary) hypertension: Status: Chronic Plan: Patient has a history of hypertension. His blood pressure is well controlled at this time. He will continue (more content not included)... Normal [facility] Comprehensive Metabolic Prof ilon 11-30-2023 Albumin [Mass/Vol] 4.0 g/dL Normal 3.2-5.0 [facility] Comment on above: Performed By: #### L 501.9985, L501.9520, L500.4050, L500.4100, L506.0400, L502.0250 ####[facility] [address] [place], [address] Albumin/Globulin [Mass ratio] 1.0 {ratio} Normal 0.9-2.4 [facility] Comment on above: Performed By: #### L 501.9985, L501.9520, L500.4050, L500.4100, L506.0400, L502.0250 ####[facility] [address] [place], [address] ALK P 72 U/L Normal 45-117 [facility] Comment on above: Performed By: #### L 501.9985, L501.9520, L500.4050, L500.4100, L506.0400, L502.0250 ####[facility] [address] [place], [address] ALT [Catalytic activity/Vol] 35 U/L Normal 16-61 [facility] Comment on above: Performed By: #### L 501.9985, L501.9520, L500.4050, L500.4100, L506.0400, L502.0250 ####[facility] [address] [place], [address] AST [Catalytic activity/Vol] 18 U/L Normal 15-37 [facility] Comment on above: Performed By: #### L 501.9985, L501.9520, L500.4050, L500.4100, L506.0400, L502.0250 ####[facility] [address] [place], [address] Bilirubin [Mass/Vol] 0.80 mg/dL Normal 0.20-1.00 [facility] Comment on above: Result Comment: For patients on eltrombopag therapy, use of Dimension Central TBIL is not recommended. Performed By: #### L 501.9985, L501.9520, L500.4050, L500.4100, L506.0400, L502.0250 ####[facility] [address] [place], [address] BUN/CRE 10.6 RATIO Normal 10-20 [facility] Comment on above: Performed By: #### L 501.9985, L501.9520, L500.4050, L500.4100, L506.0400, L502.0250 ####[facility] [address] [place], [address] CA,Total 9.5 mg/dL Normal 8.5-10.1 [facility] Comment on above: Performed By: #### L 501.9985, L501.9520, L500.4050, L500.4100, L506.0400, L502.0250 ####[facility] [address] [place], [address] Chloride [Moles/Vol] 104 mmol/L Normal 98-107 [facility] Comment on above: Performed By: #### L 501.9985, L501.9520, L500.4050, L500.4100, L506.0400, L502.0250 ####[facility] [address] [place], [address] CO2 [Moles/Vol] 24.0 mmol/L Normal 21.0-32.0 [facility] Comment on above: Performed By: #### L 501.9985, L501.9520, L500.4050, L500.4100, L506.0400, L502.0250 ####[facility] [address] [place], [place], [address] Creatinine [Mass/Vol] 1.23 mg/dL Normal 0.70-1.30 [facility] Comment on above: Result Comment: The validity of the calculated GFR GFRAA in patients over 70 years has not been determined. Clinical correlation is essential. Performed By: #### L 501.9985, L501.9520, L500.4050, L500.4100, L506.0400, L502.0250 ####[facility] [address] [place], [address] EST GFR - AA 79 mL/min Normal >60 [facility] Comment on above: Result Comment: Afri can [place] GFR Calc Performed By: #### L 501.9985, L501.9520, L500.4050, L500.4100, L506.0400, L502.0250 ####[facility] [address] [place], [address] GAP 8 Normal 5-15 [facility] Comment on above: Performed By: #### L 501.9985, L501.9520, L500.4050, L500.4100, L506.0400, L502.0250 ####[facility] [address] [place], [place], [id number] GFR/1.73 sq M.predicted among non-blacks MDRD (S/P/Bld) [Vol rate/Area] 65 mL/min/{1.73_m2} Normal >60 [facility] Comment on above: Result Comment: Non- GFR Calc Performed By: #### L 501.9985, L501.9520, L500.4050, L500.4100, L506.0400, L502.0250 ####[facility] [address] [place], [place], [id number] Globulin (S) [Mass/Vol] 4.1 g/dL Normal 2.2-4.[address] [facility] Comment on above: Performed By: #### L 501.9985, L501.9520, L500.4050, L500.4100, L506.0400, L502.0250 ####[facility] [address] [place], [address] Glucose [Mass/Vol] 137 mg/dL High 74-106 [facility] Comment on above: Result Comment: Fast ing Glucose result greater than or equal to 126 mg/dL suggests DIABETES MELLITUS per A.D.A. criteria. Performed By: #### L 501.9985, L501.9520, L500.4050, L500.4100, L506.0400, L502.0250 ####[facility] [address] [place], [address] Potassium [Moles/Vol] 3.6 mmol/L Normal 3.5-5.1 [facility] Comment on above: Performed By: #### L 501.9985, L501.9520, L500.4050, L500.4100, L506.0400, L502.0250 ####[facility] [address] [place], [address] Sodium [Moles/Vol] 136 mmol/L Normal 136-145 [facility] Comment on above: Performed By: #### L 501.9985, L501.9520, L500.4050, L500.4100, L506.0400, L502.0250 ####[facility] [address] [place], [address] T PROT 8.1 g/dL Normal 6.4-8.2 [facility] Comment on above: Performed By: #### L 501.9985, L501.9520, L500.4050, L500.4100, L506.0400, L502.0250 ####[facility] [address] [place], [address] Urea nitrogen [Mass/Vol] 13 mg/dL Normal 7-18 [facility] Comment on above: Performed By: #### L 501.9985, L501.9520, L500.4050, L500.4100, L506.0400, L502.0250 ####[facility] [address] [place], [address] Hemoglobin A1con 11-30-2023 HbA1c (Bld) [Mass fraction] 6.3 % High 3.8-5.6 [facility] Comment on above: Result Comment: Norm al < 5.7 % Prediabetic 5.7 - 6.4 % Diabetic >or= 6.5 % Please note range changes. Performed By: #### L 501.9985, L501.9520, L500.4050, L500.4100, L506.0400, L502.0250 ####[facility] [address] [place], [address] Lipid Profileon 11-30-2023 Cholesterol [Mass/Vol] 89 mg/dL Normal 200 [facility] Comment on above: Result Comment: <200 mg/dL Desirable 200-240 mg/dL Borderline >240 mg/dL High Risk Performed By: #### L 501.9985, L501.9520, L500.4050, L500.4100, L506.0400, L502.0250 ####[facility] [address] [place], [address] Cholesterol in HDL [Mass/Vol] 38 mg/dL Low [facility] Comment on above: Result Comment: The drugs N-Acetylcysteine and Metamizole may falsely depress this assay. Reference Range HDL <40 mg/dL Low HDL Cholesterol HDL >or= 60 mg/dL High HDL Cholesterol Performed By: #### L 501.9985, L501.9520, L500.4050, L500.4100, L506.0400, L502.0250 ####[facility] [address] [place], [address] Cholesterol in LDL [Mass/Vol] 13 mg/dL Normal 0-130 [facility] Comment on above: Performed By: #### L 501.9985, L501.9520, L500.4050, L500.4100, L506.0400, L502.0250 ####[facility] [address] [place], [address] Cholesterol in VLDL [Mass/Vol] 38 mg/dL Normal 5-40 [facility] Comment on above: Performed By: #### L 501.9985, L501.9520, L500.4050, L500.4100, L506.0400, L502.0250 ####[facility] [address] [place], [place], [phone] Triglyceride [Mass/Vol] 189 mg/dL Normal [facility] Comment on above: Result Comment: The drugs N-Acetylcysteine and Metamizole may falsely depress this assay. Serum Triglycerides Reference Interval Normal <150 mg/dL Borderline high 150 - 199 mg/dL High 200 - 499 mg/dL Very High > or = 500 mg/dL Performed By: #### L 501.9985, L501.9520, L500.4050, L500.4100, L506.0400, L502.0250 ####[facility] [address] [place], [address] Microalb:Creat Ratio,Random URon 11-30-2023 Creatinine [Mass/Vol] 187.00 mg/dL Normal NO RANGE EST . [facility] Comment on above: Performed By: #### L 501.9985, L501.9520, L500.4050, L500.4100, L506.0400, L502.0250 ####[facility] [address] [place], [place], [id number] MALB:CRE 27.4 mg/g CRE Normal <30 mg/g CRE [facility] Comment on above: Performed By: #### L 501.9985, L501.9520, L500.4050, L500.4100, L506.0400, L502.0250 ####[facility] [address] [place], [place], [phone] MICROALBUMIN,UR 51.2 mg/L Normal NO RANGE EST. [facility] Comment on above: Performed By: #### L 501.9985, L501.9520, L500.4050, L500.4100, L506.0400, L502.0250 ####[facility] [address] [place], [place], [phone] T4 Free Directon 11-30-2023 T4 FREE DIRECT 1.10 ng/dL Normal 0.76-1.46 [facility] Comment on above: Performed By: #### L 501.9985, L501.9520, L500.4050, L500.4100, L506.0400, L502.0250 ####[facility] [address] [place], [address] Thyroid Stim Hormone (TSH)on 11-30-2023 TSH 2.190 uIU/mL Normal 0.358-3.740 [facility] Comment on above: Performed By: #### L 501.9985, L501.9520, L500.4050, L500.4100, L506.0400, L502.0250 ####[facility] [address] [facility] [place], [address] Basophil percentageOrdered B y: Crystal Malone on 01-10-2023 Bilirubin [Mass/Vol] 0.50 mg/dL 0.20-1.00 [facility] Comment on above: For patients on eltr ombopag therapy, use of Dimension Central TBIL is not recommended. Chloride [Moles/Vol] 108 mmol/L 98-107 [facility] Cholesterol [Mass/Vol] 121 mg/dL <200 [facility] Comment on above: <200 mg/dL Desirable 200-240 mg/dL Borderline >240 mg/dL High Risk Glucose [Mass/Vol] 128 mg/dL 74-106 [facility] Comment on above: Fasting Glucose resu lt greater than or equal to 126 mg/dL suggests DIABETES MELLITUS per A.D.A. criteria. Potassium [Moles/Vol] 3.8 mmol/L 3.5-5.1 [facility] Protein [Mass/Vol] 8.2 g/dL 6.4-8.2 [facility] Sodium [Moles/Vol] 143 mmol/L 136-145 [facility] Triglyceride [Mass/Vol] 289 mg/dL <199 [facility] Comment on above: The drugs N-Acetylcy steine and Metamizole may falsely depress this assay.Serum Triglycerides Reference Interval Normal <150 mg/dL Borderline high 150 - 199 mg/dL High 200 - 499 mg/dL Very High > or = 500 mg/dL Laboratory - Chemistry and C hemistry - challengeOrdered By: Crystal Malone on 01-10-2023 ALP [Catalytic activity/Vol] 82 U/L 45-117 [facility] ALT [Catalytic activity/Vol] 43 U/L 16-61 [facility] CO2 [Moles/Vol] 28.0 mmol/L 21.0-32.0 [facility] Globulin (S) [Mass/Vol] 4.2 g/dL 2.2-4.2 [facility] Urea nitrogen/Creatinine [Mass ratio] 15.6 mg/mg 10-20 [facility] No Panel InformationOrdered By: Crystal Malone on 01-10-2023 Estimated GFR (MDRD) Amer 76 mL/min >60 [facility] Comment on above: GFR Calc Estimated GFR (MDRD) Non-Af Amer 62 mL/min >60 [facility] Comment on above: Non- GFR Calc Thyroid Stimulating Hormone (TSH) 1.90 uIU/mL 0.358-3.74 [facility] Urine Microalbumin/Creatinine Ratio 31.2 mg/g CRE <30 [facility] Vitamin D 25-Hydroxy 24.6 ng/mL [facility] Comment on above: Vitamin D 25(OH) Sta tus Range Deficiency <20 ng/mL (50nmol/L) Insufficiency 20 - 30 ng/mL (50 - 75 nmol/L) Sufficiency 30 - 100 ng/mL (75 - 250 nmol/L) Toxicity >100 ng/mL (>250 nmol/L) Serum or plasma albumin ernesto urement (mass/volume)Ordered By: Crystal Malone on 01-10-2023 Albumin [Mass/Vol] 4.0 g/dL 3.2-5.0 [facility] Serum or plasma albumin/glob ulin mass ratioOrdered By: Crystal Malone on 01-10-2023 Albumin/Globulin [Mass ratio] 1.0 {ratio} 0.9-2.4 [facility] Serum or plasma calcium ernesto urement (mass/volume)Ordered By: Crystalshae Malone on 01-10-2023 Calcium [Mass/Vol] 9.0 mg/dL 8.5-10.1 [facility] Serum or plasma cholesterol in HDL measurement (mass/volume)Ordered By: Crystalshae Malone on 01-10-2023 Cholesterol in HDL [Mass/Vol] 41 mg/dL >40 [facility] Comment on above: The drugs N-Acetylcy steine and Metamizole may falsely depress this assay. Reference Range HDL <40 mg/dL Low HDL Cholesterol HDL >or= 60 mg/dL High HDL Cholesterol Serum or plasma cholesterol in VLDL measurement (mass/volume)Ordered By: Crystalshae Malone on 01-10-2023 Cholesterol in VLDL [Mass/Vol] 58 mg/dL 5-40 [facility] Serum or plasma creatinine m easurement (mass/volume)Ordered By: Crystal Malone on 01-10-2023 Creatinine [Mass/Vol] 1.28 mg/dL 0.70-1.30 [facility] Comment on above: The validity of the calculated GFR & GFRAA in patients over 70 years has not been determined. Clinical correlation is essential. Serum or plasma low density lipoprotein (LDL) cholesterol measurement (mass/volume)Ordered By: Crystalshae Malone on 01-10-2023 Cholesterol in LDL [Mass/Vol] 22 mg/dL 0-130 [facility] Serum or plasma urea nitroge n measurement (mass/volume)Ordered By: Crystalshae Malone on 01-10-2023 Urea nitrogen [Mass/Vol] 20 mg/dL 7-18 [facility] Thin prep Papanicolaou smear with manual screeningOrdered By: Crystal Ragjustin on 01-10-2023 Thin prep Papanicolaou smear with manual screening 16 U/L 15-37 [facility] Thin prep Papanicolaou smear with manual screening 7 5-15 [facility] Thin prep Papanicolaou smear with manual screening 45.0 mg/L NO RANGE EST. [facility] Urine creatinine measurement (mass/volume)Ordered By: Crystal Malone on 01-10-2023 Creatinine (U) [Mass/Vol] 144.00 mg/dL NO RANGE EST. [facility] Basophil percentageon 2021 Bilirubin [Mass/Vol] 0.40 mg/dL 0.20-1.00 [facility] Work Phone: Comment on above: For patients on eltr ombopag therapy, use of Dimension Central TBIL is not recommended. Chloride [Moles/Vol] 106 mmol/L 98-107 [facility] Work Phone: Cholesterol [Mass/Vol] 122 mg/dL <200 [facility] Work Phone: Comment on above: <200 mg/dL Desirable 200-240 mg/dL Borderline >240 mg/dL High Risk Glucose [Mass/Vol] 227 mg/dL 74-106 [facility] Work Phone: Comment on above: Glucose result great er than or equal to 200 mg/dLsuggests DIABETES MELLITUS per A.D.A. criteria. Potassium [Moles/Vol] 3.7 mmol/L 3.5-5.1 [facility] Work Phone: Protein [Mass/Vol] 8.3 g/dL 6.4-8.2 [facility] Work Phone: Sodium [Moles/Vol] 140 mmol/L 136-145 [facility] Work Phone: Triglyceride [Mass/Vol] 287 mg/dL <199 [facility] Work Phone: Comment on above: The drugs N-Acetylcy steine and Metamizole may falsely depress this assay.Serum Triglycerides Reference Interval Normal <150 mg/dL Borderline high 150 - 199 mg/dL High 200 - 499 mg/dL Very High > or = 500 mg/dL Laboratory - Chemistry and C hemistry - challengeon 12-12-2021 ALP [Catalytic activity/Vol] 81 U/L 45-117 [facility] Work Phone: ALT [Catalytic activity/Vol] 25 U/L 16-61 [facility] Work Phone: CO2 [Moles/Vol] 26.0 mmol/L 21.0-32.0 [facility] Work Phone: Globulin (S) [Mass/Vol] 4.3 g/dL 2.2-4.2 [facility] Work Phone: Urea nitrogen/Creatinine [Mass ratio] 14.8 mg/mg 10-20 [facility] Work Phone: No Panel Informationon 12-12 Estimated GFR (MDRD) Amer 64 mL/min >60 [facility] Work Phone: Comment on above: GFR Calc Estimated GFR (MDRD) Non-Af Amer 53 mL/min >60 [facility] Work Phone: Comment on above: Non- GFR Calc Thyroid Stimulating Hormone (TSH) 1.00 uIU/mL 0.358-3.74 [facility] Work Phone: Urine Microalbumin/Creatinine Ratio 22.7 mg/g CRE <30 [facility] Work Phone: Vitamin D 25-Hydroxy 17.9 ng/mL [facility] Work Phone: Comment on above: Vitamin D 25(OH) Sta tus Range Deficiency <20 ng/mL (50nmol/L) Insufficiency 20 - 30 ng/mL (50 - 75 nmol/L) Sufficiency 30 - 100 ng/mL (75 - 250 nmol/L) Toxicity >100 ng/mL (>250 nmol/L) Serum or plasma albumin ernesto urement (mass/volume)on 12-12-2021 Albumin [Mass/Vol] 4.0 g/dL 3.2-5.0 [facility] Work Phone: Serum or plasma albumin/glob ulin mass ratioon 12-12-2021 Albumin/Globulin [Mass ratio] 0.9 {ratio} 0.9-2.4 [facility] Work Phone: Serum or plasma calcium ernesto urement (mass/volume)on 12-12-2021 Calcium [Mass/Vol] 9.2 mg/dL 8.5-10.1 [facility] Work Phone: Serum or plasma cholesterol in HDL measurement (mass/volume)on 12-12-2021 Cholesterol in HDL [Mass/Vol] 44 mg/dL >40 [facility] Work Phone: Comment on above: The drugs N-Acetylcy steine and Metamizole may falsely depress this assay. Reference Range HDL <40 mg/dL Low HDL Cholesterol HDL >or= 60 mg/dL High HDL Cholesterol Serum or plasma cholesterol in VLDL measurement (mass/volume)on 12-12-2021 Cholesterol in VLDL [Mass/Vol] 57 mg/dL 5-40 [facility] Work Phone: Serum or plasma creatinine m easurement (mass/volume)on 12-12-2021 Creatinine [Mass/Vol] 1.49 mg/dL 0.70-1.30 [facility] Work Phone: Comment on above: The validity of the calculated GFR & GFRAA in patients over 70 years has not been determined. Clinical correlation is essential. Serum or plasma low density lipoprotein (LDL) cholesterol measurement (mass/volume)on 12-12-2021 Cholesterol in LDL [Mass/Vol] 21 mg/dL 0-130 [facility] Work Phone: Serum or plasma urea nitroge n measurement (mass/volume)on 12-12-2021 Urea nitrogen [Mass/Vol] 22 mg/dL 7-18 [facility] Work Phone: Thin prep Papanicolaou smear with manual screeningon 12-12-2021 Thin prep Papanicolaou smear with manual screening 13 U/L 15-37 [facility] Work Phone: Thin prep Papanicolaou smear with manual screening 8 5-15 [facility] Work Phone: Thin prep Papanicolaou smear with manual screening 12.4 mg/L NO RANGE EST. [facility] Work Phone: Urine creatinine measurement (mass/volume)on 12-12-2021 Creatinine (U) [Mass/Vol] 54.60 mg/dL NO RANGE EST. [facility] Work Phone: CBCon 05-02-2017 Basophils Auto #/vol (Bld) 0.00 x10EE3/UL Normal 0.00 - 0.10 [facility] Comment on above: Performed By: #### 2 [id number] ####[facility],[address] [place] [address] Basophils/100 WBC Auto (Bld) 0.5 % Normal 0.0 - 2.0 [facility] Comment on above: Performed By: #### 2 15833 ####[facility],[address] [place] [address] Blood morphology N/A Normal [facility] Comment on above: Result Comment: {CD] Performed By: #### 2 50575 ####[facility],[address] [place] [address] CBC Normal [facility] Comment on above: Result Comment: CBC- COMPLETE BLOOD COUNT Performed By: #### 2 24586 ####[facility],[address] [place], [place] [id number] Eosinophils 0.80 x10EE3/UL High 0.00 - 0.50 [facility] Comment on above: Performed By: #### 2 79442 ####[facility],[address] [place], [place] [id number] Eosinophils/100 leukocytes 8.6 % High 0.0 - 7.0 [facility] Comment on above: Performed By: #### 2 78903 ####[facility],[address] [place] [address] Erythrocyte distribution width Auto Ratio (RBC) 13.8 % Normal 12.0 - 15.6 [facility] Comment on above: Performed By: #### 2 77418 ####[facility],[address] [place], [place] [id number] Erythrocytes (RBC) 4.44 x 10EE6/UL Low 4.50 - 6.00 [facility] Comment on above: Performed By: #### 2 57445 ####[facility],[address] [place] [address] Hematocrit (HCT) 37.3 % Low 40.0 - 52.0 [facility] Comment on above: Performed By: #### 2 87274 ####[facility],[address] [place] [address] Hemoglobin mass conc (Bld) 13.0 g/dL Normal 13.0 - 17.5 [facility] Comment on above: Performed By: #### 2 96319 ####[facility],[address] [place] [address] Lymphocytes 2.20 x10EE3/UL Normal 0.80 - 2.80 [facility] Comment on above: Performed By: #### 2 77721 ####[facility],[address] [place] [address] Lymphocytes/100 leukocytes 24.6 % Normal 20.0 - 45.0 [facility] Comment on above: Performed By: #### 2 72008 ####[facility],[address] [place] [address] MANUAL DIFF N/A Normal [facility] Comment on above: Performed By: #### 2 06807 ####[facility],[address] [place] [address] MCH 29 pg Normal 27 - 33 [facility] Comment on above: Performed By: #### 2 61885 ####[facility],[address] [place] [address] MCHC mass conc (RBC) 35 X10 3 Normal 32 - 36 [facility] Comment on above: Performed By: #### 2 85455 ####[facility],[address] [place] [address] MCV 84 fL Normal 81 - 98 [facility] Comment on above: Performed By: #### 2 31008 ####[facility],[address] [place] [address] Monocytes 0.70 x10EE3/UL Normal 0.20 - 1.00 [facility] Comment on above: Performed By: #### 2 09666 ####[facility],[address] [place] [address] 42551 MONOS % 7.4 % Normal 0.0 - 10.0 [facility] Comment on above: Performed By: #### 2 18669 ####[facility],[address] [place] [address] Neutrophils 5.30 x10EE3/UL Normal 1.50 - 7.10 [facility] Comment on above: Performed By: #### 2 40272 ####[facility],[address] [place] [address]20 Neutrophils/100 WBC Auto (Bld) 58.9 % Normal 46.0 - 76.0 [facility] Comment on above: Performed By: #### 2 17917 ####[facility],[address] [place] [address] Platelet mean volume (PMV) 8.6 fL Normal 6.4 - 10.5 [facility] Comment on above: Result Comment: AUTO MATED DIFFERENTIAL Performed By: #### 2 90266 ####[facility],[address] [place] [address] 23780 Platelets 284 x10EE3/UL Normal 150 - 450 [facility] Comment on above: Performed By: #### 2 41266 ####[facility],[address] [place] [address]208 WBC (Leukocytes) 9.0 x 10EE3/UL Normal 4.5 - 10.8 [facility] Comment on above: Performed By: #### 2 29077 ####[facility],[address] [place], [place] [id number] CMP with eGFRon 05-02-2017 Age 46 years Normal [facility] Comment on above: Performed By: #### 2 29760 ####[facility],[address] [place] [address] 67082 Albumin 4.9 g/dL High 3.4 - 4.8 [facility] Comment on above: Performed By: #### 2 11885 ####[facility],[address] [place] [address] 69026 Albumin/Globulin Ratio 1.7 {ratio} High 0.9 - 1.6 [facility] Comment on above: Performed By: #### 2 31760 ####[facility],[address] [place] [address] 79996 ALK PHOS 67 U/L Normal 38 - 126 [facility] Comment on above: Performed By: #### 2 26790 ####[facility],[address] [place] [address] 60804 ALT/SGPT 27 U/L Normal 10 - 40 [facility] Comment on above: Performed By: #### 2 22279 ####[facility],[address] [place] [address]1911 Anion gap 17 mmol/L Normal 10 - 20 [facility] Comment on above: Performed By: #### 2 33161 ####[facility],[address] [place] [address] 17927 AST/SGOT 15 U/L Normal 13 - 39 [facility] Comment on above: Performed By: #### 2 31176 ####[facility],[address] [place] [address] 90707 B/C RATIO 17 ratio Normal 0 - 30 [facility] Comment on above: Performed By: #### 2 81944 ####[facility],[address] [place] [address] 83071 Bilirubin (total) 0.6 mg/dL Normal 0.0 - 1.5 [facility] Comment on above: Performed By: #### 2 03930 ####[facility],[address] [place] [address] 60839 Calcium 10.0 mg/dL Normal 8.6 - 10.2 [facility] Comment on above: Performed By: #### 2 44145 ####[facility],[address] [place] [address] 58741 Chloride 102 mmol/L Normal 98 - 107 [facility] Comment on above: Performed By: #### 2 77434 ####[facility],[address] [place] [address] 63230 CO2 24.7 mmol/L Normal 21.0 - 31.0 [facility] Comment on above: Performed By: #### 2 72258 ####[facility],[address] [place] [address] 11037 Creatinine 1.2 mg/dL Normal 0.7 - 1.3 [facility] Comment on above: Performed By: #### 2 12620 ####[facility],[address] [place] [address] 51937 eGFR (non-black) mL/min/{1.73_m2} Normal 60 - 999 [facility] Comment on above: Result Comment: ACCO RDING TO THE NATIONAL KIDNEY DISEASE EDUCATION PROGRAM(NKDE), A NORMAL eGFRIS A VALUE GREATER THAN OR EQUAL TO 60 ML/MIN/1.73 SQ METERS.CHRONIC KIDNEY DISEASE: <60mL/MIN/1.73 SQ METERSKIDNEY FAILURE: <15mL/MIN/1.73 SQ METERSTHIS TEST SHOULD ONLY BE USED FOR PATIENTS 18 YEARS OF AGE AND OLDER. Performed By: #### 2 48018 ####[facility],[address] [place] [address] 61967 eGFR (non-black) Normal [facility] Comment on above: Result Comment: COMP REHENSIVE METABOLIC PANEL Performed By: #### 2 [id number] ####[facility],[address] [place] [id number] Globulin 2.9 g/dL Normal 1.5 - 3.8 [facility] Comment on above: Performed By: #### 2 [id number] ####[facility],[address] [place] [address] Glucose mass conc 198 mg/dL High 74 - 106 [facility] Comment on above: Performed By: #### 2 [id number] ####[facility],[address] [place] [address] Potassium molar conc 3.7 mmol/L Normal 3.5 - 5.1 [facility] Comment on above: Performed By: #### 2 [id number] ####[place] [address] Protein 7.8 g/dL Normal 6.4 - 8.3 [facility] Comment on above: Performed By: #### 2 [id number] ####[place] [address] Sodium 140 mmol/L Normal 136 - 145 [facility] Comment on above: Performed By: #### 2 [id number] ####[place] [address] Urea nitrogen 20 mg/dL Normal 6 - 20 [facility] Comment on above: Performed By: #### 2 [id number] ####[facility],[address] [place], [place] [address] PSA CANCER SCREENING (G0103) on 05-02-2017 PSA 1.12 ng/ml Normal 0.00 - 4.00 [facility] Comment on above: Performed By: #### 2 [id number] ####[place] [id number] Vital Signs Date Time Vital Sign Value Performing Clinician Alex campoverde 02-29-2024 13:26-0500 Body height 175.[address] Rolando Holliday MD [facility] 02-29-2024 13:26-0500 Body mass index (BMI) [Ratio] 32.3 kg/m2 Dr. Rolando Holliday MD [facility] 02-29-2024 13:26-0500 Body weight 99.[address] Rolando Holliday MD [facility] 02-29-2024 13:26-0500 Diastolic blood pressure 79 mm[Hg] Dr. Rolando Holliday MD [facility] 02-29-2024 13:26-0500 Heart rate 88 /min Dr. Rolando Holliday MD [facility] 02-29-2024 13:26-0500 Respiratory rate 16 /min Dr. Rolando Holliday MD [facility] 02-29-2024 13:26-0500 Systolic blood pressure 115 mm[Hg] Dr. Rolando Holliday MD [facility] 12-12-2022 09:10-0400 Body height 175.[address] Rolando Holliday [facility] 12-12-2022 09:10-0400 Body mass index (BMI) [Ratio] 32.5 kg/m2 Dr. Rolando Holliday [facility] 12-12-2022 09:10-0400 Body weight 99.[address] Rolando Holliday [facility] 12-12-2022 09:10-0400 Diastolic blood pressure 69 mm[Hg] Dr. Rolando Holliday [facility] 12-12-2022 09:10-0400 Heart rate 95 /min Dr. Rolando Holliday [facility] 12-12-2022 09:10-0400 Respiratory rate 18 /min Dr. Rolando Holliday [facility] 12-12-2022 09:10-0400 SaO2% (BldA) [Mass fraction] 97 % Dr. Rolando Holliday [facility] 12-12-2022 09:10-0400 Systolic blood pressure 131 mm[facility] Date Encounter Type Care Provider Facility Start: 10-30-2024 ambulatory Chester Sofya Facili ty:[facility] Start: 10-17-2024 ambulatory Chester Sofya Facili ty:[facility] Start: 06-12-2024 End: 06-12-[address] Rolando Holliday MD [facility] Work Phone: Start: 06-12-2024 End: 06-12-[address] [facility] Start: 06-12-2024 End: 06-12-2024 ambulatory Crystal Malone Facility:[facility] Start: 03-28-2024 ambulatory Julio Frizt Facility:[facility] Start: 02-29-2024 End: 02-29-[address] Julio Fritz MD -[facility] Work Phone: Start: 02-29-2024 End: 02-29-2024 ambulatory Julio Fritz Facility:[facility] Start: 11-30-2023 End: 11-30-2023 ambulatory Crystal Malone Facility:[facility] Start: 01-10-2023 End: 01-10-[address] Rolando Holliday [facility] Work Phone: Start: 01-10-2023 End: 01-10-[address] Rolando Holliday [facility] Work Phone: Start: 12-12-2022 End: 12-12-[address] Rolando Holliday [facility] Work Phone: Start: 12-12-2021 End: 12-12-2021 ambulatory [facility] Work Phone: Start: 12-12-2021 End: 12-12-2021 Patient encounter procedure [facility] Start: 05-02-2017 End: 05-02-2017 Ambulatory CRYSTAL MALONE [facility] Plan of Treatment Date Care Activity Detail Author CT angiography of coronary arteries [facility] Stress echocardiography [facility] Payers Date Payer Category Payer Self-pay [id number] 2023 Self-pay [id number] 2022 Unknown [id number] 2015 Private Health Insurance ALFONZO Fernando [id number] Unknown SKY [id number] Unknown [id number] 2.16.8 [id number] Unknown [id number] 2.16.8 [id number] Unknown [id number] 2.16.8 [id number] Unknown [id number] 2.16.8 [id number] Unknown [id number] 2.16.8 [id number] Unknown [id number] 2.16.8 [id number] Social History Date Type Detail Facility Start: 02-22-2021 End: 12-12-2022 Tobacco smoking status KYIS Unknown if ever smoked [facility] Start: 1970 Sex Assigned At Male W [facility] Start: 12-12-2022 Tobacco smoking stat us KYIS Never smoked tobacco (finding) [facility] Start: 06-17-2024 Sex Male (finding) [facility] Evaluation note 02-29-2024 Note Date & Type Note Facility 02-29-2024 Evaluation note Diagnosis Onset Date Resolution Essential (primary) hypertension chronic February 28 1:22pm Hyperlipidemia chronic February 102023 1:22pm [facility] Work Phone: Evaluation note Note Date & Type Note Facility Evaluation note No assessment information availa ble [facility] Work Phone: Evaluation note Note Date & Type Note Facility Evaluation note Diagnosis Onset Date Essential (primary) hypertension chronic Hyperlipidemia chronic [facility] Work Phone: Reason for referral (narrative) Note Date & Type Note Facility Reason for referral (narrative) No reason for referral information available [facility] Work Phone: Summary Purpose Family History No Family History Records Found Relationship Condition Age at Onset Recorded Date/T amanda mother Diabetes mellitus Unknown Advance Directives No Advanced Directives Records FoundNo Advanced Directives Records Found Chief Complaint and Reason for Visit Chief Complaint 1 Y FU Reason for Visit Essential (primary) hypertension Hyperlipidemia Chief Complaint Admit Date 1 Y FU February 29, 2024 1:22pm Reason for Visit Admit Date Essential (primary) hypertension Decembe r 2023 1:22pm Hyperlipidemia February 29, 2024 1:22pm Additional Source Comments (unrecognized sect ion and content) No Status Records FoundNo Status Records Found INFORMATION SOURCE (unrecogn ized section and content) DATE CREATED AUTHOR 08/31/2017 [facility] DATE CREATED AUTHOR AUTHOR'S ORGANIZ ATION 10/28/2024 [facility] Goals (unrecognized section and content) Goals may be documented in a n alternate sectionGoals may be documented in an alternate sectionGoals may be documented in an alternate section Care Teams (unrecognized sec tion and content) Team Status: Active Member Role Status Dates Dr. Rolando Holliday MD Family Provider Active Dr. Rolando Holliday MD Primary Care Provider Active Team Status: Inactive Member Role Status Dates Dr. Rolando Holliday MD Primary Care Provider, Referring Provider Active Brigette Sun NP, CRYSTALC Attending Provider Active Team Status: Inactive Member Role Status Dates Dr. Rolando Holliday MD Primary Care Provider Active Dr. Crystal Malone MD Attending Provider, [facility] Provider Active Team Status: Active Member Role Status Dates Dr. Rolando Holliday MD Family Provider Active JESSY Sanchez Primary Care Provider Active Team Status: Inactive Member Role Status Dates Dr. Rolando Holliday MD Referring Provider Active Start: February 29, 2024 End: February 29, 2024 Dr. Julio Fritz MD Attending Provider Active S tart: February 29, 2024 End: February 29, 2024 JESSY Sanchez Primary Care Provider Active Start: February 29, 2024 End: February 29, 2024 Team Status: Inactive Member Role Status Dates JESSY Sanchez Primary Care Provider Active Start: June 12, 2024 End: June 12, 2024 Dr. Crystal Malone MD Attending Provider Act deniz Start: June 12, 2024 End: June 12, 2024 Dr. Crystal Malone MD Referring Provider Act [facility] Start: June 12, 2024 End: June 12, 2024 FOR RECORDS PERTAINING TO PATIENTS WHO ARE OR HAVE BEEN ENROLLED IN A CHEMICAL DEPENDENCY/SUBSTANCEABUSE PROGRAM, SOME INFORMATION MAY BE OMITTED. This clinical summary was aggregated from multiple sources. Caution should be exercised in using it in the provision of clinical care. This summary normalizes information from multiple sources, and as a consequence, information in this document may materially change the coding, format and clinical context of patient data. In addition, data may be omitted in some cases. CLINICAL DECISIONS SHOULD BE BASED ON THE PRIMARY CLINICAL RECORDS. [facility] [employer] [facility]. provides no warranty or guarantee of the accuracy or completeness of information in this document.
[2024-10-30] MEDS: Lactated Ringers 1,000 ML 15 ML IV (06:16)
--- NOTE | 2024-10-30 06:38 | PRE.ANES_ITS ---
ASA Classification* ASA Classification ASA Classification: 3 Assessment & Plan Anesthesia* Anesthesia Assessment Anesthesia Assessment: Discussed sedation and/or anesthesia options, risks, benefits, and alternatives with patient/parents/legal guardian/POA. Questions invited. The patient/parents/legal guardian/POA seems to understand and agrees to proceed with anesthesia plan. Reviewed the physical assessment, medical history, allergy history and patient home medications list prior to surgery/procedure/anesthetic and documented any changes. Performed airway and anesthesia risk assessments. Anesthesia Type Anesthesia Type: General and Block History Source History Obtained from:: Patient and Chart Anesthesia Focused Assessment* Temperature: 97.4 F Pulse Rate: 83 Blood Pressure: 126/82 Respiratory Rate: 16 Pulse Ox: 99 Oxygen Delivery Method: Room Air Airway Assessment Mouth opens: >3 cm Mallampati Score: IV Teeth Condition: Intact Neck Range of motion (ROM): Full ROM Labs Anesthesia Preop lab: CBC WBC 6.4 K/mm3 (4.4-11.0) 10/17/24 08:04 10/17/24 RBC 4.92 M/mm3 (4.6-6.2) 10/17/24 08:04 10/17/24 Hgb 13.7 g/dL (13.0-16.5) 10/17/24 08:04 10/17/24 Hct 42.1 % (40-54) 10/17/24 08:04 10/17/24 Plt Count 288 K/mm3 (150-450) 10/17/24 08:04 10/17/24 CHEMISTRY Potassium 3.9 mmol/L (3.3-5.1) 10/17/24 08:04 10/17/24 Sodium 139 mmol/L (133-145) 10/17/24 08:04 10/17/24 Magnesium 1.5 mg/dL (1.8-2.4) L 06/23/14 17:32 06/23/14 BUN 21 mg/dL (4-19) H 10/17/24 08:04 10/17/24 Creatinine 1.45 mg/dL (0.70-1.20) H 10/17/24 08:04 Glucose 145 mg/dL (70-99) H 10/17/24 08:04 10/17/24 TSH 2.190 uIU/mL (0.358-3.740) 11/30/23 12:45 11/11 COAG Pre-Assessment Diagnosis/Proposed Procedure Planned Operative Procedure(s): (R) RIGHT SHOULDER ARTHROSCOPIC ROTATOR CUFF REPAIR, SUBACROMIAL DECOMPRESSION, MINI OPEN BICEPS TENODESIS AND CAPSULAR RELEA SE Anesthesia History 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 When Was Last Pacemaker Check QUESTION #4 FULL TEXT: You/Your Family Experience fever (hyperthermia) with Anesthesia Last Oral Intake Last Oral intake: Last Oral Intake NPO since 00:00 10/30/24 05:59 Meds taken in AM with sips of water? Meds patient instructed to take am of surgery PONV PONV - retail account specialist: PONV - retail account specialist Female No 10/17/24 13:31 HX of Motion Sickness No 10/17/24 13:31 HX of N/V After Surgery No 10/17/24 13:31 Non-Smoker Yes 10/17/24 13:31 Duration of Surgery greater Yes 10/17/24 13:31 than 60 minutes Number of Risk Factors 2 10/17/24 13:31 PONV Score Moderate Risk 10/17/24 13:31 Height & Weight Height & Weight: Anesthesia: Height & Weight Height 5 ft 9 in 10/30/24 05:59 Weight: 100.698 kg 10/30/24 05:59 Body Mass Index (BMI) 32.8 10/30/24 05:59 Respiratory Assessment Respiratory Assessment - retail account specialist: Respiratory Tract Infection Hx - retail account specialist Hx Respiratory Tract Infection No 10/17/24 13:31 STOP Sleep Apnea STOP Sleep Apnea - retail account specialist: STOP Sleep Apnea - retail account specialist Hx Hypertension Yes 10/17/24 13:31 Hx Sleep Apnea Yes 10/17/24 13:31 CPAP Yes: NON COMPLIANT 10/17/24 13:31 BIPAP No 10/17/24 13:31 Do you snore loudly (louder than talking or can be heard Do you often feel tired/ fatigued/ sleepy during daytime? Has anyone observed you stop breathing during sleep? STOP Results Positive 10/17/24 13:31 QUESTION #5 FULL TEXT : Do you snore loudly (louder than talking or can be heard through closed doors)? Tobacco Use History Tobacco Use History - retail account specialist: Tobacco Use History - retail account specialist Tobacco Use Smoking Status Never smoker 10/17/24 13:31 Hx Tobacco Use No 10/17/24 13:31 Years Smoking Packs Smoked per Day Smoking Cessation Date was within the last 15 years Hx Smoking Cessation Date Hx Smoking Cessation Counseling Hematologic Medial History Hematologic Hx - retail account specialist: Hematologic Medical Hx - certified wellness program manager Hx of Blood Transfusion No 10/17/24 13:31 Hx of Transfusion in last 3 No 10/17/24 13:31 Months Date of Last Transfusion (if within last 3 months) Ever experience any problems No 10/17/24 13:31 with transfusion(s)? Specify any problems Hx of Preganancy in last 3 N/A 10/17/24 13:31 Months Nurse Filling Out Transfusion [facility] 10/17/24 13:31 & Questions: Date: 10/17/24 10/17/24 13:31 Time: 13:38 10/17/24 13:31 Patient unable to answer at this time (ie. confused, unrespo /Reproduction History /Reproductive History - retail account specialist: /Reproductive Hx- retail account specialist Hx Now Gestational Age (in weeks): EDC: Hx Hx Para Hx Section SAB Active Medications Active Medications: Current Medications Generic Name Dose Route Start Last Admin Trade Name Freq PRN Reason Stop Dose Admin Cefazolin Sodium 2 gm/ Sodium 110 mls @ 200 mls/hr 10/30/24 07:30 Chloride IV 10/30/24 08:02 INTRAOP ONE Lactated Ringer's 1,000 mls @ 15 mls/hr 10/30/24 06:00 10/30/24 06:16 IV 15 mls/hr .Q48H M[place]IE Administration PFSH Medical History (Updated 10/17/24 @ 13:37 by Sarika Jordan) Wears glasses Insulin dependent diabetes mellitus Diabetes High cholesterol History of diverticulitis Non-smoker CPAP (continuous positive airway pressure) dependence Sleep apnea Hypertension History of echocardiogram Cardiology follow-up encounter Abnormal electrocardiogram Obesity Type 2 diabetes mellitus Essential (primary) hypertension Hyperlipidemia Home Medications ?Medication ?Instructions ?Recorded ?Last Taken ?Type amlodipine 10 mg tablet 10 mg PO QDAY 03/30/1710/29 History hydrochlorothiazide 25 mg tablet 25 mg PO QDAY 8 Unknown History metformin 1,000 mg tablet 1,000 mg PO BID 03/30/17 Unk nown History BP Cuff and monitor #1 ea 12/02/19 Unknown Rx dapagliflozin propanediol 10 mg 10 mg PO DAILY 2 10/26/24 History tablet (Farxiga) candesartan 32 mg tablet 32 mg PO DAILY 12/12/2210/11 History insulin degludec 100 unit/mL (3 18 unit subcut DAILY 1 Unknown History mL) subcutaneous pen (Tresiba FlexTouch U-100 insulin) meloxicam 7.5 mg tablet 7.5 mg PO DAILY 12/12/22 Unk nown History insulin aspart 12 unit subcut TID 02/29/24 Unknown History (niacinamide)(U-100) 100 unit/mL(3 mL) subcutaneous pen (Fiasp FlexTouch U-100 Insulin) tirzepatide 12.5 mg/0.5 mL 12.5 mg subcut TATUM 02/29/24 10/19/24 History subcutaneous pen injector (Davidunjaro) rosuvastatin 20 mg tablet 20 mg PO DAILY 10/17/24 Unkn own History Allergy/AdvReac Type Severity Reaction Status Date / Time naproxen (From Naprosyn) AdvReac Severe COULD NOT Verified 10/30/24 05:53 TASTE ANYTHING Family History Mother Diabetes Surgical History (Updated 10/17/24 @ 13:37 by Sarika Jordan) History of cardiac catheterization History of left heart catheterization (2010) Social History Smoking Status: Never smoker alcohol intake: current what type of physical activity do you participate in: none Review of Systems (Anesthesia) ROS Narrative System reviewed and no additional complaints, except as documented. Physical Exam Resp normal respiratory effort and normal air movement Cardio regular rate and regular rhythm Extremity full ROM Neuro oriented x3 and moves all extremities
[2024-10-30] MEDS: Midazolam 2 MG/2 ML Syringe IV (07:17)
[2024-10-30] MEDS: Cefazolin 1 GM/5 ML Vial 2 GM IV (07:35)
[2024-10-30] MEDS: Lidocaine 1% (5 ml sdv) 5 ML Vial 10 ML IV (07:41)
[2024-10-30] MEDS: Epinephrine (1 mg/ml) 1 MG/ML VIAL (08:05)
[2024-10-30] MEDS: Bupiv/Epi 0.25% 30 ML Vial (09:37)
--- NOTE | 2024-10-30 09:51 | PCM.OPRPT ---
Operative Report (Standard) Operative Information Date of Procedure: 10/30/24 Pre-Operative Diagnosis: 1. Right shoulder rotator cuff tear 2. Right shoulder subacromial impingement syndrome 3. Right shoulder long head biceps tendon tendinopathy Post-Operative Diagnosis: 1. Right shoulder rotator cuff tear 2. Right shoulder subacromial impingement syndrome 3. Right shoulder long head biceps tendon tendinopathy Surgery/Procedure Performed: Right shoulder arthroscopic rotator cuff repair, subacromial decompression and mini open subpectoral biceps tenodesis parquet floor layer's helper: Yes Mid Level Business Analyst: Jayne Machuca Tasks completed by psychiatric assistant: Opening & closing, Implanting device and Retracting Type of Anesthesia: General/Regional RN Documented Start/Stop Times: Operation Date: 10/30/24 07:30 Case Time Into Pre-Op 10/30/24 05:50 Out of Pre-Op 10/30/24 07:34 Anesthesia Start 10/30/24 07:35 Into Room 10/30/24 07:35 Procedure Start 10/30/24 08:01 Procedure End 10/30/24 09:41 Anesthesia End 10/30/24 09:47 Out of Room 10/30/24 09:47 Procedure Start Time: 08:01 Procedure Stop Time: 09:41 Select all DRAINS/GRAFTS/IMPLANTS that apply: Implanted device Implanted device details: Arthrex metallic biceps button x 2, triple loaded fiber tack anchor x 1, self punching bio composite 4.75 mm swivel lock anchor x 1 Estimated Blood Loss: 10 cc Specimen collected: No Description of surgery: Patient was identified in the preoperative holding area by name, medical record number, and date of . The operative extremity was marked. All questions were answered to the patient satisfaction. Interscalene block was then administered by anesthesia staff. At time of his procedure, patient was brought to the operative suite and positioned supine on a standard operating table. General anesthesia was induced and LMA placed. Patient was then positioned in the lateral decubitus position with the right side up. Axillary roll was placed. All bony prominences were well-padded. He was held in place with a beanbag. We spun the bed 45 degrees. Right extremity was then prepped and draped in a normal, sterile orthopedic fashion. A timeout was called confirming the side, site, and operation to be performed. No concerns were voiced and we elected to proceed with surgery. 2 g Ancef was administered IV prior to incision by anesthesia staff. Right upper extremity was placed in arthroscopic traction with 20 pounds of traction force applied to the right arm throughout the arthroscopic portion the case approximately 1 hour. I then established a standard posterior portal 2 fingerbreadths inferior medial posterior lateral scapular spine border. Blunt tipped trocar was used to enter the glenohumeral joint which was filled normal saline with epinephrine. Severe contracture of the glenohumeral joint was noted. I was able to establish an anterior portal and to proceed with capsular release in the rotator interval. Partial biceps tearing was noted near the biceps labral junction. Biceps anchor was stable. Biceps tenotomy was performed at the biceps labral junction and the tendon was allowed to retract into its groove. The subscapularis was pristine. The articular side of the supraspinatus and infraspinatus were pristine. Glenohumeral cartilage was minimally degenerative. No loose bodies were identified. Arthroscope was then removed. I reentered the shoulder in the subacromial space with a blunt tipped trocar. Lateral portal was established. Significant bursitis was noted. The undersurface of the acromion was skeletonized and a prominent downsloping anterior subacromial spur was noted. This was resected to a smooth type I acromion with a arthroscopic bur to perform the acromioplasty in standard fashion. I then used a bubble test to dilate the concealed interstitial delamination tear of the supraspinatus previously noted on MRI. Spinal needle was introduced into the supraspinatus just medial to the footprint. 4 to 5 cc of normal saline was injected into the supraspinatus and a bubble was noted consistent with a tear. I then introduced an 11 blade scalpel to split the tear in its median. The separation of the lamina was noted with the articular lamina appearing pristine. I introduced the shaver to debride the inner surface of the tear. I established a posterior lateral portal for better visualization. I also established a anterior superior lateral portal for suture management. I then proceeded with fixation. I first placed a medial row anchor along the articular margin of the footprint via percutaneous portal. I used a triple loaded fiber tack anchor which was placed in standard fashion. I proceeded with placing [id number] repair sutures in standard fashion working from lateral to medial. I then sequentially tied the corresponding suture which compressed the tear well and reapproximated the [id number] tear that was generated iatrogenically. There was a small dogear noted anteriorly. I elected to place for the suture limbs within a swivel lock anchor to place a lateral row anchor along the lateral margin of the greater tuberosity. This was placed in standard fashion with excellent purchase. The small dogear was then reduced with the knotless mechanism via a scorpion suture passer. Anatomic compression and reduction of the rotator cuff was noted. Repair was stable to probing. I then withdrew the arthroscope and remaining arthroscopic instruments. Excess fluid was drained from the shoulder. Portal sites were closed interrupted jaqjkc-jf-wzwnh fashion with a 3-0 nylon suture. I then remove the arm from traction. Oblique incision was made along the inferior border the pectoralis major for tenodesis. Blunt dissection was carried down to the level of fascia. Fascia was opened just inferior to the pectoralis major tendon. Pectoralis tendon was retracted laterally and the short of the head of the biceps retracted medially. Long head was identified and retrieved out of the wound. No significant tendinosis was noted and minimal tenosynovitis. I then proceeded with loop intact fixation at the musculotendinous junction of the long head of the biceps. Sutures tail was then passed through a trapdoor type biceps button. I drilled in the subpectoral region of the humerus near cortex only for an onlay tenodesis. Suture button was then placed and attempting to flip the suture was apparently cut. The button was already within the intramedullary canal was unable to be retrieved. I proceeded with repassing suture with a fresh suture provided by the vendor removing the prior suture. I used the same hole and in similar fashion and placed a second button within the chief pilot hole this 1 achieving excellent fixation after flipping within the canal and the tendon was reduced to our planned tenodesis site. The conjoint suture was then cut and a single limb was passed back through the tendon with a scorpion suture passer and tied for additional fixation. Wound was irrigated with saline copiously. Field block was administered with 10 cc quarter percent bupivacaine with epinephrine. Dermis was reapproximated buried 3-0 Vicryl suture and skin finally reapproximated with a subcuticular 4-0 Monocryl. Dermabond was applied to this incision. Bulky sterile compression dressing was applied. Patient was placed in an UltraSling. He was safely extubated in the operative suite and awakened from anesthesia. He tolerated the procedure well without apparent complication. He was transferred to his gurney and subsequently to PACU in stable condition. Need for skilled assistant housekeeping manager: Jayne Machuca PA-C was critical to the outcome of the case. During the course of the procedure the physician assistant housekeeping manager played a vital role. Her intimate knowledge of my steps in the procedure aided in safe and expedient completion of the procedure. The PA played a vital role in positioning particularly in obtaining the appropriate positioning. The PA was also vital in the retraction of soft tissues during the exposure and protecting vital structures. The PA was also vital and obtaining tendon reduction and assisting with hardware placement. She also played a vital role in closure and sling application with my direct supervision. Postoperative plan: Follow-up in 2 weeks for suture removal and initiation of physical therapy. Standard rotator cuff repair protocol. Multimodal pain management with Tylenol, NSAIDs, and oxycodone as prescribed. Aspirin 81 mg twice daily for DVT prophylaxis x 2 weeks. Ice to the shoulder. Sling x 6 weeks. Surgical Findings: Concealed interstitial delamination tear of the supraspinatus. Long head biceps tendinopathy. Complications Complications: Yes Complication Details: Failure of suture during biceps button insertion requiring a second button placed inside the intramedullary canal of the right humerus. No harm to the patient. Admit VTE Documentation VTE Present on Admission: No VTE Mechan Device Prophylaxis: SCD's VTE Pharm Prophylaxis ordered?: Yes
--- NOTE | 2024-10-30 09:51 | PCM.POST.ANE ---
Anesthesia: Postop Eval I Current Vital Signs Temperature: 98.4 F Pulse Rate: 89 Blood Pressure: 136/88 Respiratory Rate: 16 Pulse Ox: 95 Assessment Airway patent: Yes Spontaneous unlabored respirations: Yes nausea: No Vomiting: No Anesthesia Complication: No Fluid Hydration Crystalloid volume administer (ml): 1,100 Total IV fluid infused: 1,100 Progress Note Anesthesia document: Postop Eval 1 completed: Yes
--- NOTE | 2024-10-30 10:17 | POSTOPAN2_ITS ---
Anesthesia Postop Eval I Sum Postop Eval Completion status Anesthesia document: Postop Eval 1 completed: Yes Anesthesia Postop Eval I Summary Anesthesia Postop Eval I Summary: Anesthesia Postop Eval I: Assessment Summary Airway patent Yes 10/30/24 09:51 [email or web address] Spontaneous unlabored Yes 10/30/24 09:51 [email or web address] respirations Mental status nausea No 10/30/24 09:51 [email or web address] Vomiting No 10/30/24 09:51 [email or web address] Anesthesia Postop Eval I: Fluid Summary Crystalloid volume administer 1,100 10/30/24 09:51 [email or web address] (ml) Colloids volume administered ( ml) Blood Product volume administered (ml) Total IV fluid infused 1,100 10/30/24 09:51 [email or web address] Anesthesia Postop Eval I: Summary Notes Anesthesia Complication No 10/30/24 09:51 [email or web address] Anesthesia Complication Comment: Post-operative progress note Anesthesia: Postop Eval II Evaluation Mental status: Awake Pain Level: 0 nausea: No Vomiting: No Complications Anesthesia Complication: No
--- NOTE | 2024-10-30 10:17 | PCM.POSTANE2 ---
Anesthesia Postop Eval I Sum Postop Eval Completion status Anesthesia document: Postop Eval 1 completed: Yes Anesthesia Postop Eval I Summary Anesthesia Postop Eval I Summary: Anesthesia Postop Eval I: Assessment Summary Airway patent Yes 10/30/24 09:51 DECORATING [email or web address] Spontaneous unlabored Yes 10/30/24 09:51 DECORATING [email or web address] respirations Mental status nausea No 10/30/24 09:51 DECORATING [email or web address] Vomiting No 10/30/24 09:51 [email or web address] [email or web address] Anesthesia Postop Eval I: Fluid Summary Crystalloid volume administer 1,100 10/30/24 09:51 [email or web address] [email or web address] (ml) Colloids volume administered ( ml) Blood Product volume administered (ml) Total IV fluid infused 1,100 10/30/24 09:51 DECORATING [email or web address] Anesthesia Postop Eval I: Summary Notes Anesthesia Complication No 10/30/24 09:51 DECORATING [email or web address] Anesthesia Complication Comment: Post-operative progress note Anesthesia: Postop Eval II Evaluation Mental status: Awake Pain Level: 0 nausea: No Vomiting: No Complications Anesthesia Complication: No
== END 2024-10-30 12:35 | disposition home or self-care (01) ==
LOC: SDC 05:30 → AC 05:30
PROVIDERS: PCP Nurse Practitioner Family; Referring Provider Student in an Organized Health Care Education/Training Program; Visit Provider Student in an Organized Health Care Education/Training Program
PROC: (CPT 29827; principal; 2024-10-30 07:10)
DX: M75.101 Unspecified rotator cuff tear or rupture of right shoulder, not specified as traumatic (principal); E11.22 Type 2 diabetes mellitus with diabetic chronic kidney disease; Z79.4 Long term (current) use of insulin; N18.30 Chronic kidney disease, stage 3 unspecified; M75.51 Bursitis of right shoulder; M75.21 Bicipital tendinitis, right shoulder; M75.41 Impingement syndrome of right shoulder; I12.9 Hypertensive chronic kidney disease with stage 1 through stage 4 chronic kidney disease, or unspecified chronic kidney disease; E78.00 Pure hypercholesterolemia, unspecified; E66.9 Obesity, unspecified; G47.30 Sleep apnea, unspecified; Z68.32 Body mass index [BMI] 32.0-32.9, adult; Z79.84 Long term (current) use of oral hypoglycemic drugs; Z79.85 Long-term (current) use of injectable non-insulin antidiabetic drugs; Z79.899 Other long term (current) drug therapy
CPT/HCPCS: 23430; 29827; 29826; 01630; 64415; 36415; 80048; 82962; 83036; 85025; 93005; C1713; J2405

== ENCOUNTER → 2025-01-08 | Outpatient (CLI) | payer BC, SELFPAY ==
[2025-01-08 15:12] LABS: Hematocrit 39.9 % (40-54); Hemoglobin 13.5 g/dL (13.0-16.5); Mean Corp Hgb Conc 33.8 g/dL (32-36); Mean Corpuscular Volume 81.9 fL (80-94); Mean Platelet Vol. 10.0 fl (6.2-12.0); Platelet Count 281 K/mm3 (150-450); RBC Distribution Width CV 13.3 % (11.6-14.6); RBC Distribution Width SD 39.1 fl (35.1-43.9); Red Blood Count 4.87 M/mm3 (4.6-6.2); White Blood Count 7.0 K/mm3 (4.4-11.0)
[2025-01-08 15:23] LABS: Creatinine, Urine (random) 226.00 mg/dL (39.00-259.00); Microalbumin,Random Urine 65.5 mg/L (<20 mg/L)
[2025-01-08 15:45] LABS: AST(SGOT) 25 U/L (<=37); Alanine Aminotransfer ALT/SGPT 50 U/L (<=46); Albumin, Serum 4.6 g/dL (3.5-5.0); Alkaline Phosphatase 85 U/L (40-129); Anion Gap 14 (5-15); BUN 20 mg/dL (4-19); BUN/Creat Ratio 17.2 RATIO (10-20); Calcium,Total 10.0 mg/dL (7.6-11.0); Carbon Dioxide 20.8 mmol/L (21.0-32.0); Chloride 105 mmol/L (98-108); Cholesterol 75 mg/dL (<=200); Free T3 3.1 pg/mL (2.18-3.98); Globulin 3.2 g/dL (2.2-4.2); Glucose 141 mg/dL (70-99); Low Density Lipoprotein Calc. 17 mg/dL; Potassium 3.6 mmol/L (3.3-5.1); Triglycerides 139 mg/dL; Very Low Density Lipoprotein 28 mg/dL (5-40); Vitamin D,25 Hydroxy 17.9 ng/mL (30-100); cholesterol:hdl ratio screen 2.21
== END | disposition home or self-care (01) ==
LOC: MTLAB 12:43
PROVIDERS: PCP Nurse Practitioner Family; Referring Provider Internal Medicine Endocrinology, Diabetes & Metabolism; Visit Provider Internal Medicine Endocrinology, Diabetes & Metabolism
DX: E11.65 Type 2 diabetes mellitus with hyperglycemia (principal); I10 Essential (primary) hypertension; E78.5 Hyperlipidemia, unspecified; E66.9 Obesity, unspecified; E55.9 Vitamin D deficiency, unspecified
CPT/HCPCS: 36415; 80053; 80061; 82043; 82306; 82570; 83036; 84439; 84443; 84481; 85027

== ENCOUNTER → 2025-02-12 | Outpatient (CLI) | payer BC, SELFPAY ==
--- NOTE | 2025-02-12 09:39 | STEWCON_ITS ---
Reason For Study Reason For Study: CAD,HTN,ASHD, Stress Results Protocol: Rafiq Protocol WITH DEFINITY Maximum Predicted HR: 165 bpm Target HR: 140 bpm % Maximum Predicted HR: 88 % DurationHeart Rate Stage (mm:ss) (bpm) BP Comment BASELINE 83 120/82 STAGE 1 3:00 118 132/78 STAGE 2 3:00 131 142/80 STAGE 3 3:00 146 192/642 CC DEFINITY FOR ENTIRE TEST RECOVERY 104 128/68 Stress Duration: 9:00 mm:ss Maximum Stress HR: 146 bpm Baseline Echocardiogram Findings Stress Echo Wall motion Data Resting WM Intermediate WM Stress WM ECHO/Stress Test Echo W/Contrast Interpretation Summary Exercise stress echo. 54-year-old man with a history of diabetes hypertension coronary disease. Resti ng EKG demonstrates normal sinus rhythm with a rate of 81 bpm resting blood pressure is 120/82 mmHg. Patient exercised according to regular Rafiq protocol for total duration of 9 minutes. Completing stage III of the Rafiq protocol the max imum heart rate was 150 bpm which was 90% of maximum predicted heart rate the maximum workload was 10.1 metabolic equival ents. At rest there were no ST or T wave changes noted suggest ischemia at peak exercise nonspecific ST changes were not ed we did not meet the criteria for ischemia. No clinical angina was noted the test was terminated due to target he art rate achieved. Normal blood pressure response to exercise was noted. Stress echocardiogram. Stress echocardiogram was performed with and without Def inity. The resting echocardiogram demonstrated ejection fraction of 55% with a peak ejection fraction of 70% with no wall motion abnormalities present. Conclusion: Stress echo with no EKG or echocardiographic criteria for ischemia at high work load. Resting echocardiogram performed with Definity enhancement and peak echocardiog rose images noted to be normal. Ordering Physician: Julio Fritz Referring Physician: Julio Fritz Performed By: Maral Noel, RDCS, RVT
== END | disposition home or self-care (01) ==
PROVIDERS: PCP Nurse Practitioner Family; Referring Provider Internal Medicine Cardiovascular Disease; Visit Provider Internal Medicine Cardiovascular Disease
DX: I25.10 Atherosclerotic heart disease of native coronary artery without angina pectoris (principal); I10 Essential (primary) hypertension
CPT/HCPCS: 93017; 93350; Q9957; A4216; C8928